=== PATIENT | female | born 1940 | race Caucasian/White ===

== ENCOUNTER → 2018-02-20 15:18 | Outpatient (CLI) | payer MEDICARE, OTHER, SELFPAY ==
[2018-02-20 16:25] LABS: Hemoglobin A1C% w Est Avg Glu 8.4 % (4.0-6.0)
[2018-02-20 17:23] LABS: Free T4, Direct Thyroxine 1.27 ng/dL (0.78-2.19)
== END ==
PROVIDERS: Family Provider Physician Assistant; PCP Physician Assistant; Visit Provider Physician Assistant
DX: R63.4 Abnormal weight loss (principal); E11.9 Type 2 diabetes mellitus without complications
CPT/HCPCS: 36415; 83036; 84439; 84443

== ENCOUNTER 2018-03-10 17:53 | Emergency (ER) | payer MEDICARE, OTHER, SELFPAY ==
[2018-03-10 17:55] VITALS: BP 170/82; PULSE 76; RESP 16; TEMP 36.2; O2SAT 100; BMI 21.6
[2018-03-10 18:54] VITALS: BP 182/70; PULSE 70; RESP 12; O2SAT 99
[2018-03-10 19:06] LABS: Add Manual Diff / Slide Review NO; Basophils Percent Auto 0.4 % (0-2); Eosinophils Percent Auto 0.6 % (2-4); Hematocrit 43.9 % (36-46); Hemoglobin 14.8 g/dL (12.0-16.0); Lymphocytes Percent Auto 26.3 % (25-40); Mean Corpuscular HGB Conc 33.6 % (30-36); Mean Corpuscular Hemoglobin 30.6 PG (26-34); Mean Corpuscular Volume 90.8 fL (80-100); Monocytes Percent Auto 6.6 % (3-14); Neutrophils Absolute Auto 5700 /uL (3000-5900); Neutrophils Percent Auto 66.1 % (50-75); Platelet Count 184 X10^3/uL (150-400); Red Blood Cell Count 4.84 X10^6/uL (4.0-5.2); Red Cell Distribution Width 14.2 % (11.6-14.8); White Blood Cell Count 8.6 X10^3/uL (4.5-11.0)
[2018-03-10] MEDS: ONDANSETRON 4 MG/2 ML INJ IV ×2 (19:07→21:55)
[2018-03-10 19:11] LABS: INR 1.1 (0.9-1.3); Prothrombin Time 11.4 SECONDS (10.1-12.7)
[2018-03-10 19:13] LABS: Alanine Aminotransferase 35 IU/L (9-52); Albumin 4.2 g/dL (3.5-5.0); Albumin Globulin Ratio 1.6 (1.0-2.8); Alkaline Phosphatase 105 U/L (38-126); Aspartate Aminotransferase 26 IU/L (14-36); Bilirubin Total 0.8 mg/dL (0.2-1.3); Blood Urea Nitrogen 12 mg/dL (7-17); Calcium 8.9 mg/dL (8.4-10.2); Carbon Dioxide 31 mmol/L (22-32); Chloride 97 mmol/L (98-107); Estimated Glomerular Filt Rate > 60.0 mL/min (>60); Globulin 2.7 g/dL (1.7-4.1); Glucose 199 mg/dL (80-110); HEMOLYSIS < 15 (0-50); Lipase 91 U/L (23-300); PTT Partial Thromboplastin Tim 30 SECONDS (26.4-36.2); Potassium 3.3 mmol/L (3.4-5.1); Sodium 138 mmol/L (137-145); Total Protein 6.9 g/dL (6.3-8.2)
--- NOTE | 2018-03-10 19:14 | ED_ITS ---
HPI - Abdominal Pain General Chief Complaint: Abdominal Pain Stated Complaint: vomiting Time Seen by Provider: 03/10/18 19:14 Source: patient Mode of arrival: ambulatory Limitations: no limitations History of Present Illness HPI narrative: The patient was started on Trulicity for diabetes. Her 1st dose was about 1.5 weeks ago. Her 2nd dose was 4 days ago. Since then she had multiple episodes of emesis daily. With this she has no fever, she has had chills. She has no diarrhea. She is actually constipated. She has not suffered any abdominal pain at this time. She has a remote history of diverticulitis, there is no c/o significant left lower quadrant pain. She has no ENT, chest or respiratory symptoms. She denies dysuria. Related Data Home Medications Medication Instructions Recorded Confirmed cyclobenzaprine 10 mg PO PRN #0 02/17/13 02/25/18 amlodipine [Norvasc] 2.5 mg PO QDAY #0 02/04/17 02/25/18 Previous Rx's Medication Instructions Recorded albuterol sulfate [Ventolin HFA] 0 INH Q4H #8 gm 06/26/16 hyoscyamine sulfate 0.125 mg SUBLINGUAL TID-QID #120 11/06/16 tab hyoscyamine sulfate [Hyosyne] 0.25 ml PO TID-QID #240 ml 11/06/16 cholecalciferol (vitamin D3) 50,000 unit PO [id number] #12 cap 04/04/17 hydrochlorothiazide 0.5 - 1 tab PO QDAY PRN #30 tab 04/04/17 Disabled Parking Permit ea #1 04/05/17 esomeprazole magnesium [Nexium] 40 mg PO HS #90 cap 11/19/17 hydroxyzine pamoate 25 mg capsule 25 mg PO Q6HP #60 cap 01/30/18 dicyclomine 20 mg tablet 20 mg PO Q6HP PRN #120 tab 02/07/18 glyburide 5 mg tablet 10 mg PO BID #120 tab 02/07/18 Glucose: Test Strips #100 each 02/25/18 atorvastatin 10 mg tablet 5 mg PO BID #90 tab 02/25/18 dulaglutide 0.75 mg/0.5 mL 0.75 mg SUBCUT QWEEK #2 ml 02/25/18 subcutaneous pen injector losartan 50 mg tablet 50 mg PO Q DAY #90 tab 02/25/18 nabumetone 500 mg tablet See Label Instructions PO QDAY 02/25/18 #270 tab tramadol 50 mg tablet 50 mg PO HSP PRN #60 tab 02/25/18 ondansetron [Zofran ODT] 4 mg PO Q4H PRN #10 tab 03/10/18 Allergies Allergy/AdvReac Type Severity Reaction Status Date / Time cloxacillin Allergy Intermediate HIVES Unverified 02/25/18 12:16 Penicillins Allergy Intermediate HIVES Unverified 02/25/18 12:16 zinc Allergy Intermediate HIVES Unverified 02/25/18 12:16 aspirin AdvReac Intermediate SEVERE Unverified 02/25/18 12:16 REFLUX acetaminophen AdvReac Mild STOMACH Unverified 02/25/18 12:16 UPSET cephalexin AdvReac Mild STOMACH Unverified 02/25/18 12:16 PAINS ciprofloxacin AdvReac Mild STOMACH Unverified 02/25/18 12:16 PAINS codeine AdvReac Mild GI UPSET Unverified 02/25/18 12:16 diphenhydramine AdvReac Mild STOMACH Unverified 02/25/18 12:16 UPSET metformin AdvReac Mild ABDOMINAL Unverified 02/25/18 12:16 PAIN metronidazole AdvReac Mild STOMACH Unverified 02/25/18 12:16 UPSET morphine AdvReac Mild GI UPSET Unverified 02/25/18 12:16 Review of Systems Constitutional Reports chills, Denies fever(s), Denies lethargy and Denies weakness Eyes Denies eye discharge ENT Ears, Nose, Mouth, and Throat: Denies change in voice, Denies disequilibrium and Denies sore throat Cardiovascular Denies chest pain, Denies irregular heart rhythm, Denies lightheadedness, Denies palpitations, Denies dyspnea, Denies dyspnea on exertion and Denies orthopnea Respiratory Denies cough, Denies dyspnea, Denies dyspnea on exertion and Denies wheezing Gastrointestinal Gastrointestinal: Denies abdominal pain, Denies diarrhea, Reports nausea, Reports vomiting and Denies hematemesis Genitourinary Denies dysuria, Denies flank pain and Denies urinary urgency Musculoskeletal Denies back pain, Denies muscle weakness, Denies numbness and Denies tingling Integumentary/Breasts Denies erythema and Denies rash Neurologic Denies numbness, Denies tingling, Denies disequilibrium and Denies weakness Endocrine Denies palpitations Allergic/Immunologic Denies wheezing [facility] Medical History Ankylosing spondylitis (Chronic Unknown) Diabetes (Chronic Unknown) Diverticulitis (Chronic Unknown) Fibromyalgia (Chronic Unknown) GERD (gastroesophageal reflux disease) (Chronic Unknown) Hyperlipemia (Chronic Unknown) Osteopenia (Chronic 03/2013) Osteoporosis (Chronic 09/2014) Hx of rheumatic fever (Resolved Unknown) Surgical History Hx of arthroscopy of left knee (Resolved 01/2015) History of tonsillectomy Status post breast reduction Status post cholecystectomy Status post hysterectomy Family History Grandmother Pernicious anemia Sister Diabetes mellitus Dementia Sister Diabetes mellitus CAD (coronary artery disease) Sister Diabetes mellitus CAD (coronary artery disease) Social History Smoking Status: Never smoker Exam Initial Vital Signs Initial Vital Signs: Vital Signs Temperature 97.2 F L 03/10/18 17:55 Pulse Rate 76 03/10/18 17:55 Respiratory Rate 16 03/10/18 17:55 Blood Pressure 170/82 H 03/10/18 17:55 Pulse Oximetry 100 03/10/18 17:55 Const General: cooperative and well developed Nutritional Appearance: well nourished Orientation: alert, awake, oriented x3 and not confused [facility] Head: normocephalic and atraumatic Nose: No nasal discharge Face and sinus: sinuses nontender, face symmetric, no sinus tenderness and No dry mucous membranes Mouth: oral mucosae normal and moist mucous membranes Teeth and gingiva: dentition normal Throat: posterior oropharynx normal Eyes Conjunctivae: conjunctivae normal Pupils: PERRL EOM: EOM intact bilaterally Neck Neck: No JVD Resp Effort & Inspection: normal respiratory effort, able to speak in complete sentences and no respiratory distress Auscultation: clear to auscultation bilaterally, no rales, no rhonchi and no wheezes Cardio Rate: regular rate Rhythm: regular rhythm Heart Sounds: S1 normal, S2 normal, no click, no gallops, no murmurs and no rubs Pulses: normal peripheral pulses GI Inspection: non-distended Palpation: soft, no hepatosplenomegaly, No guarding, No pulsatile mass and tender (in the LLQ. No rebound) Auscultation: normal bowel sounds Back/Spine/Pelvis Other: No CVAT Skin General: no rashes or lesions noted, No jaundice and No petechiae Neuro General: alert, oriented x3, gait normal and no focal motor deficits Speech: speech normal Extrem General: full ROM, no clubbing, cyanosis or edema, no pedal edema and no calf tenderness Course Hospital Course: The patient has improved with IV hydration, and the medications given. She was given a dose of potassium orally. The situation seems to be associated with an adverse medication reaction. I will discharge her on Zofran, she will need to follow up with her doctor to decide whether not to continue the medication. Orders Ordered: ED Orders 03/10/18 18:50 Complete Blood Count AUTO DIFF Stat Comprehensive Metabolic Panel Stat Lipase Stat Partial Thromboplastin Time Stat Prothrombin Time INR Stat 03/10/18 21:14 Urine Microscopic Stat Discontinued Medications Sodium Chloride (Normal Saline 0.9%) 500 mls @ 1,000 mls/hr IV BOLUS ONE Stop: 03/10/18 20:20 Last Infusion: 03/10/18 21:29 Dose: 0 mls/hr Admin: 03/10/18 20:08 Dose: 1,000 mls/hr Sodium Chloride (Normal Saline 0.9%) 500 mls @ 1,000 mls/hr IV BOLUS ONE Stop: 03/10/18 22:08 Last Infusion: 03/10/18 22:41 Dose: 0 mls/hr Admin: 03/10/18 21:55 Dose: 1,000 mls/hr Ondansetron HCl (Zofran) 4 mg IV NOW ONE Stop: 03/10/18 18:40 Last Admin: 03/10/18 19:07 Dose: 4 mg Ondansetron HCl (Zofran) 4 mg IV NOW ONE Stop: 03/10/18 21:40 Last Admin: 03/10/18 21:55 Dose: 4 mg Ondansetron HCl (Zofran Odt Prepack) 1 bottle [facility] SEEINSTR ONE Stop: 03/10/18 22:34 Last Admin: 03/10/18 22:41 Dose: 1 bottle Pantoprazole Sodium (Protonix) 40 mg IV NOW ONE Stop: 03/10/18 21:40 Last Admin: 03/10/18 21:55 Dose: 40 mg Potassium Chloride (Potassium Chloride) 20 meq PO NOW ONE Stop: 03/10/18 19:52 Last Admin: 03/10/18 20:08 Dose: 20 meq Vital Signs - 8 hr 03/10/18 20:30 03/10/18 21:30 03/10/18 22:47 Temperature 97.6 F Pulse Rate 72 73 84 Respiratory Rate 18 Blood Pressure 190/65 H Blood Pressure [Right Arm] 158/72 H 190/65 H Pulse Oximetry 100 99 100 MDM - Abdominal Pain Lab Data Attestation: I reviewed the patient's lab results. Result diagrams: 03/10/18 18:50 03/10/18 18:50 Lab Results 03/10/18 03/10/18 03/10/18 Range/Units 18:50 18:50 18:50 WBC 8.6 (4.5-11.0) X10^3/uL RBC 4.84 (4.0-5.2) X10^6/uL Hgb 14.8 (12.0-16.0) g/dL Hct 43.9 (36-46) % MCV 90.8 (80-100) fL MCH 30.6 (26-34) PG MCHC 33.6 (30-36) % RDW 14.2 (11.6-14.8) % Plt Count 184 (150-400) X10^3/uL Neut % (Auto) 66.1 (50-75) % Lymph % (Auto) 26.3 (25-40) % Humphreys % (Auto) 6.6 (3-14) % Eos % (Auto) 0.6 L (2-4) % Baso % (Auto) 0.4 (0-2) % Neut # (Auto) 5700 (8070-3708) /uL PT 11.4 (10.1-12.7) SECONDS INR 1.1 (0.9-1.3) APTT 30 (26.4-36.2) SECONDS Sodium 138 (137-145) mmol/L Potassium 3.3 L (3.4-5.1) mmol/L Chloride 97 L (98-107) mmol/L Carbon Dioxide 31 (22-32) mmol/L BUN 12 (7-17) mg/dL Creatinine 0.50 L (0.52-1.04) mg/dL Estimated GFR > 60.0 (>60) mL/min BUN/Creatinine Ratio 24.0 H (6-22) Glucose 199 H (80-110) mg/dL Calcium 8.9 (8.4-10.2) mg/dL Total Bilirubin 0.8 (0.2-1.3) mg/dL AST 26 (14-36) IU/L ALT 35 (9-52) IU/L Alkaline Phosphatase 105 (38-126) U/L Total Protein 6.9 (6.3-8.2) g/dL Albumin 4.2 (3.5-5.0) g/dL Globulin 2.7 (1.7-4.1) g/dL Albumin/Globulin Ratio 1.6 (1.0-2.8) Lipase 91 (23-300) U/L Urine RBC (0-5/HPF) Urine WBC (0-5/HPF) Ur Squamous Epith Cells Urine Bacteria (None) Urine Mucus (Negative) Ur Culture Indicated? Micro UA Comment 03/10/18 Range/Units 21:14 WBC (4.5-11.0) X10^3/uL RBC (4.0-5.2) X10^6/uL Hgb (12.0-16.0) g/dL Hct (36-46) % MCV (80-100) fL MCH (26-34) PG MCHC (30-36) % RDW (11.6-14.8) % Plt Count (150-400) X10^3/uL Neut % (Auto) (50-75) % Lymph % (Auto) (25-40) % Humphreys % (Auto) (3-14) % Eos % (Auto) (2-4) % Baso % (Auto) (0-2) % Neut # (Auto) (3532-7666) /uL PT (10.1-12.7) SECONDS INR (0.9-1.3) APTT (26.4-36.2) SECONDS Sodium (137-145) mmol/L Potassium (3.4-5.1) mmol/L Chloride (98-107) mmol/L Carbon Dioxide (22-32) mmol/L BUN (7-17) mg/dL Creatinine (0.52-1.04) mg/dL Estimated GFR (>60) mL/min BUN/Creatinine Ratio (6-22) Glucose (80-110) mg/dL Calcium (8.4-10.2) mg/dL Total Bilirubin (0.2-1.3) mg/dL AST (14-36) IU/L ALT (9-52) IU/L Alkaline Phosphatase (38-126) U/L Total Protein (6.3-8.2) g/dL Albumin (3.5-5.0) g/dL Globulin (1.7-4.1) g/dL Albumin/Globulin Ratio (1.0-2.8) Lipase (23-300) U/L Urine RBC 0-1/hpf (0-5/HPF) Urine WBC 0-1/hpf (0-5/HPF) Ur Squamous Epith Cells 0-1 /hpf Urine Bacteria None seen (None) Urine Mucus 1+ H (Negative) Ur Culture Indicated? Cult not indicated Micro UA Comment Not Reportable ECG Data Attestation: I personally reviewed and interpreted this ECG as follows: (Normal sinus rhythm rate 75 bpm. Indeterminate axis. Nonspecific ST T wave changes. No ST elevation. Normal intervals.) Discharge Plan Departure Patient Disposition: Home, Self-Care Clinical Impression: Vomiting, Adverse drug reaction Discharge Date/Time: 03/10/18 22:52 Interventions: ED Discharge Assessment Last Done: 03/10/18 22:47 Instructions: DI for Vomiting -- Adult Activity Restrictions/Additional Instructions: Avoid taking the Trulicity until you follow up with your doctor. Zofran every 4 hr as needed for nausea. Be sure you are drinking plenty of water, advance your diet as tolerated. Return here as needed. Prescriptions: New ondansetron [Zofran ODT] 4 mg tablet,disintegrating 4 mg PO Q4H PRN (Reason: nausea and vomiting) Qty: 10 RF: 0 No Action losartan [Cozaar] 50 mg tablet 50 mg PO Q DAY Qty: 90 RF: 3 tramadol 50 mg tablet 50 mg PO HSP PRN (Reason: pain) Qty: 60 RF: 3 atorvastatin [Lipitor] 10 mg tablet 5 mg PO BID Qty: 90 RF: 3 nabumetone 500 mg tablet See Label Instructions PO QDAY Qty: 270 RF: 3 dulaglutide [Trulicity] 0.75 mg/0.5 mL pen injector 0.75 mg SUBCUT QWEEK Qty: 2 RF: 1 Glucose: Test Strips .Route .MEDSUPPLY Qty: 100 RF: 3 cyclobenzaprine 10 MG tablet 10 mg PO PRN Qty: 0 RF: 0 albuterol sulfate [Ventolin HFA] 90 MCG/PUFF HFA aerosol inhaler INH Q4H Qty: 8 RF: 0 hyoscyamine sulfate 0.125 MG tablet,disintegrating 0.125 mg Sublingual TID-QID Qty: 120 RF: 1 hyoscyamine sulfate [Hyosyne] 0.125 MG/1 ML drops 0.25 ml PO TID-QID Qty: 240 RF: 1 amlodipine [Norvasc] 2.5 MG tablet 2.5 mg PO QDAY Qty: 0 RF: 0 hydrochlorothiazide 12.5 MG tablet 0.5 - 1 tab PO QDAY PRNQty: 30 RF: 3 cholecalciferol (vitamin D3) 50,000 UNIT capsule 50,000 unit PO [id number] Qty: 12 RF: 3 Disabled Parking Permit Qty: 1 RF: 0 esomeprazole magnesium [Nexium] 40 MG capsule,delayed release(DR/EC) 40 mg PO HS Qty: 90 RF: 0 hydroxyzine pamoate [Vistaril] 25 mg capsule 25 mg PO Q6HP Qty: 60 RF: 0 dicyclomine 20 mg tablet 20 mg PO Q6HP PRN (Reason: Irritable bowel syndrome) Qty: 120 RF: 0 glyburide 5 mg tablet 10 mg PO BID Qty: 120 RF: 0
[2018-03-10] MEDS: SODIUM CHLORIDE 0.9% 500 ML 1000 ML IV ×2 (20:08→21:55)
[2018-03-10] MEDS: POTASSIUM CHLORIDE 20 MEQ/15 ML UDC PO (20:08)
[2018-03-10 20:30] VITALS: BP 158/72; PULSE 72; O2SAT 100
[2018-03-10 21:19] LABS: Bacteria Urine None Seen
[2018-03-10 21:29] LABS: Culture Indicated Urine Cult Not Indicated; Mucus Urine 1+ (Negative); RBC Urine 0-1/HPF (0-5/HPF); Squamous Epithelial Cell Urine 0-1 /HPF; WBC Urine 0-1/HPF (0-5/HPF)
[2018-03-10 21:30] VITALS: BP 190/65; PULSE 73; O2SAT 99
[2018-03-10] MEDS: PANTOPRAZOLE 40 MG VIAL IV (21:55)
[2018-03-10] MEDS: ONDANSETRON 4 MG ODT PREPACK 1 BOTTLE MISC (22:41)
[2018-03-10 22:47] VITALS: BP 190/65; PULSE 84; RESP 18; TEMP 36.4; O2SAT 100
== END 2018-03-10 22:52 | disposition home or self-care (01) ==
PROVIDERS: Emergency Provider Emergency Medicine; Family Provider Physician Assistant; PCP Physician Assistant
DX: R11.10 Vomiting, unspecified (principal); T38.3X5A Adverse effect of insulin and oral hypoglycemic [antidiabetic] drugs, initial encounter
CPT/HCPCS: 36591; 80053; 81003; 81015; 83690; 85025; 85610; 85730; 93005; 96361; 96374; 96375; 96376; 99283; 99284; C9113; J2405

== ENCOUNTER → 2018-03-27 17:37 | Outpatient (CLI) | payer MEDICARE, OTHER, SELFPAY ==
--- NOTE | 2018-03-27 | DI.MRI.S_ITS ---
PROCEDURE: MR SHOULDER RT WO CON INDICATIONS: Right shoulder osteoarthritis TECHNIQUE: Noncontrast oblique coronal T2 fast spin echo with fat saturation, oblique sagittal T1 spin echo and T2 fast spin echo with fat saturation, axial T1 spin echo and T2 fast spin echo with fat saturation through the shoulder. COMPARISON: None. FINDINGS: Image quality: Excellent. Rotator cuff: Small region of fluid signal intensity within the upper subscapularis tendon at the humeral insertion site extending to the muscular tendinous junction is present. Linear horizontally oriented high T2 signal intensity within anterior, middle, and posterior supraspinatus footprint is present, which nearly extends to the bursal surface. Low T2 signal intensity foci within the supraspinatus tendon bursal surface at the humeral insertion site, as well as the mid infraspinatus tendon at the humeral insertion site is present, indicating calcific tendinitis. Sagittal images demonstrate no muscle atrophy. Bones and bursae: No bone marrow contusions or fractures. There is mild acromioclavicular joint degeneration. The acromion demonstrates conventional anatomy, without an os acromiale. No pathologic subacromial-subdeltoid or subcoracoid bursal fluid is present. Capsule and soft tissues: Linear and amorphous high T2 signal intensity traverses the anteroinferior, postero-inferior, mid posterior, and posterior inferior glenoid labrum, indicating glenoid labral tearing. The long head of the biceps tendon demonstrates normal location and morphology. The rotator interval appears normal, without fibrosis. The coracohumeral ligament is normal in thickness. IMPRESSION: 1. Small high-grade partial-thickness articular surface tearing of the anterior, mid, and posterior supraspinatus tendon footprint. 2. Small partial-thickness tear of the subscapularis tendon. 3. Acromioclavicular joint osteoarthritis. 4. Glenoid labral tearing. Dictated by: Angely Mitchell M.D. on 03/28/2018 at 9:16 Approved by: Angely Mitchell M.D. on 03/28/2018 at 9:31
== END ==
PROVIDERS: Family Provider Physician Assistant; PCP Physician Assistant; Visit Provider Orthopaedic Surgery
DX: M75.101 Unspecified rotator cuff tear or rupture of right shoulder, not specified as traumatic (principal); M19.011 Primary osteoarthritis, right shoulder
CPT/HCPCS: 73221

== ENCOUNTER → 2018-04-07 17:04 | Outpatient (CLI) | payer MEDICARE, OTHER, SELFPAY ==
--- NOTE | 2018-04-07 17:06 | DI.MRI.S_ITS ---
PROCEDURE: MR CERVICAL SPINE WO CON INDICATIONS: Neck pain radiating into right shoulder TECHNIQUE: Noncontrast sagittal T1 spin echo and T2 fast spin echo, sagittal STIR, foraminal oblique sagittal T2 fast spin echo, and axial gradient echo or T2 fast spin echo through the cervical spine. COMPARISON: [facility], CT, C-SPINE WITHOUT CONTRAST, 04/07/2010, 1:00. FINDINGS: Image quality: Excellent. Alignment and Curvature: There is normal bony alignment. Bone Marrow: Marrow demonstrates normal overall signal. There is surgical fusion at C5-C6-C7. Spinal Cord: Visualized spinal cord has normal size and signal. No cerebellar tonsillar herniation. Paraspinous Soft Tissues: No paravertebral masses. Prevertebral soft tissues are normal in thickness. C2-C3: Mild loss of disc height and disc desiccation. There is diffuse posterior disc bulge. The central canal is patent. No foraminal stenosis. C3-C4: Mild loss of disc height and disc desiccation. There is diffuse posterior disc bulge and uncovertebral hypertrophy. Mild right facet arthropathy. The central canal is moderately narrowed. [id number] bilateral foraminal stenosis. C4-C5: Mild loss of disc height and disc desiccation. There is diffuse posterior disc bulge and uncovertebral hypertrophy. Moderate bilateral facet arthropathy. The central canal is moderately narrowed. [id number] bilateral foraminal stenosis. C5-C6: Surgically fused. Prominent posterior osteophyte. Mild bilateral facet of C3 the central canal is moderately narrowed. Severe left and moderate right foraminal stenosis. C6-C7: Surgically fused. Prominent posterior osteophyte. Mild bilateral facet of C3 the central canal is moderately narrowed. Severe left and moderate right foraminal stenosis. C7-T1: Normal appearance. IMPRESSION: 1. Multilevel degenerative and postsurgical changes as described. 2. Moderate central canal stenosis at C5-C6 and C6-C7. 3. Multilevel foraminal stenosis as described, severe at C5-C6 and C6-C7 on the left, moderate to severe at C3-C4 and C4-C5 bilaterally, moderate at C5-C6 and C6-C7 on the right. Dictated by: Keegan Seals M.D. on 04/08/2018 at 11:21 Transcribed by: PROSPER on 04/08/2018 at 11:27 Approved by: Keegan Seals M.D. on 04/08/2018 at 17:43
== END ==
PROVIDERS: Family Provider Physician Assistant; PCP Physician Assistant; Visit Provider Physician Assistant
DX: M50.11 Cervical disc disorder with radiculopathy, high cervical region (principal); M48.02 Spinal stenosis, cervical region; Z98.1 Arthrodesis status
CPT/HCPCS: 72141

== ENCOUNTER → 2018-04-14 13:34 | Outpatient (CLI) | payer MEDICARE, OTHER, SELFPAY | PROVIDERS: Family Provider Physician Assistant; PCP Physician Assistant; Visit Provider Physician Assistant | DX: M81.0 Age-related osteoporosis without current pathological fracture (principal); Z78.0 Asymptomatic menopausal state; E11.9 Type 2 diabetes mellitus without complications; M45.9 Ankylosing spondylitis of unspecified sites in spine; M06.9 Rheumatoid arthritis, unspecified; Z82.62 Family history of osteoporosis | CPT/HCPCS: 77080 ==

== ENCOUNTER 2018-07-01 08:44 | Outpatient (CLI) | payer MEDICARE, OTHER, SELFPAY ==
[2018-07-01] VITALS (9 sets, daily range): BP systolic 99–136; BP diastolic 53–69; PULSE 67–79; RESP 16–18; TEMP 36.6; O2SAT 98–100
--- NOTE | 2018-07-01 08:48 | DI.RAD.S_ITS ---
PROCEDURE: PAIN C/T FACET INJ/BLK 1ST L INDICATIONS: SPONDYLOSIS FINDINGS: Fluoroscopic spot filming was performed to verify placement of spinal needles at the C7-T1 and T1-T2 right-sided level(s), as labeled on the films. Appropriate location(s) of the needle tip(s) was confirmed by injection of iodinated contrast. IMPRESSION: Successful needle tip localization adjacent to the right C7-T1 and T1-T2 facet joints for epidural steroid injection. Dictated by: Lennox Verma M.D. on 07/01/2018 at 16:33 Approved by: Lennox Verma M.D. on 07/01/2018 at 16:34
--- NOTE | 2018-07-01 09:30 | PC.NURSE ---
pt reports, posterior neck pain, with right arm radiating pain, unable to sleep last night due to pain, denies fever,vomiting.
[2018-07-01] MEDS: MIDAZOLAM 5 MG/5 ML VIAL IV (09:44)
[2018-07-01] MEDS: IOPAMIDOL 15 ML VIAL 3 ML INJ (09:52)
[2018-07-01] MEDS: BUPIVACAINE 0.25% (PF) VIAL 2 ML INJ (09:53)
[2018-07-01] MEDS: DEXAMETHASONE 10 MG/ML VIAL 30 MG INJ (09:53)
--- NOTE | 2018-07-01 09:55 | PC.NURSE ---
transporting pt to post op area in stable condition
--- NOTE | 2018-07-01 09:56 | PM.PROC.1 ---
Procedures Date/Time Date of procedure: 07/01/18 Time of procedure: 09:57 General Procedure description: PREOP DIAGNOSIS 1. FACET ARTHROPATHY 2. AXIAL NECK PAIN POST OP DIAGNOSIS 1. FACET ARTHROPATHY 2. AXIAL NECK PAIN PROCEDURES 1. FLUOROSCOPICALLY GUIDED, CONTRAST-CONTROLLED RIGHT C7/T1, T1/2 FACET JOINT INJECTIONS WITH CONSCIOUS SEDATION. PHYSICIAN: Melchor Anglin, DO INDICATIONS Fernanda is referred by BERNIE Daniel for treatment of Axial Neck Pain DESCRIPTION OF PROCEDURE Fluoroscopically guided, contrast-controlled Right C7/T1, T1/2 facet joint injections with conscious sedation. Following denial of allergy and review of potential side effects and complications, including, but not necessarily limited to, infection, allergic reaction, local tissue breakdown, stroke, temporary or permanent nerve injury and paralysis, the patient indicated that the patient understood and agreed to proceed. An informed consent document was signed by the patient, witnessed by a nurse, and placed in the patient's chart. Additionally, other treatment options including medications, modalities, and physical therapy were reviewed with the patient. After review of previous anaesthesic history and IV conscious sedation the patient was deemed safe to proceed with todays procedure with IV conscious sedation as ASA class II designation. Safety time-out was performed to confirm patient ID, procedure to be performed and site of procedure. IV sedation was accomplished with a combination of 3mg was administered by the RN after DO order, titrated to patient comfort during the course of the procedure while the patient remained responsive to all verbal commands In the prone position, following sterile prep and drape of the cervical spine region, the posterior aspect of the right C7/T1, T1/2 facet joints were identified fluoroscopically. The skin was anesthetized via a 25-gauge 1.5-inch needle with 1% lidocaine solution into the corresponding facet joints. At this point, a 25-gauge 2.5-inch spinal needle was atraumatically introduced and advanced under fluoroscopic guidance into the corresponding facet joints. Following negative aspiration, injections of approximately 0.2-cc of Isovue 200 confirmed interarticular placement without vascular uptake. At this point, a total of 1 cc including 0.5 cc or 5 mg of dexamethasone combined with 0.5 cc of 1% lidocaine solution was injected without complication into each of the corresponding facet joints. The procedure tolerated the procedure well without signs or symptoms of complications prior to transfer to the recovery area continued monitoring without incident. The patient was then transferred to the recovery area where they were observed for an appropriate period of time after the injection. The patient reported a VAS score of 7 prior to the procedure and a post-procedure VAS of 0. Total Fluoroscopy Time: 20.5 seconds Total Conscious Sedation Time: 24 min POST OP INSTRUCTIONS They were provided a Pain Log to continue to record their response to the target-specific procedure prior to their follow-up visit with their referring physician. Additionally, specific post-injection care instructions and a contact number to our office were provided if concerns arise regarding possible complications associated with the procedure are suspected. Melchor Anglin, Complications: none
--- NOTE | 2018-07-01 09:59 | P.PCN_ITS ---
Procedures Date/Time Date of procedure: 07/01/18 Time of procedure: 09:57 General Procedure description: PREOP DIAGNOSIS 1. FACET ARTHROPATHY 2. AXIAL NECK PAIN POST OP DIAGNOSIS 1. FACET ARTHROPATHY 2. AXIAL NECK PAIN PROCEDURES 1. FLUOROSCOPICALLY GUIDED, CONTRAST-CONTROLLED RIGHT C7/T1, T1/2 FACET JOINT INJECTIONS WITH CONSCIOUS SEDATION. PHYSICIAN: Melchor Anglin, DO INDICATIONS Fernanda is referred by BERNIE Daniel for treatment of Axial Neck Pain DESCRIPTION OF PROCEDURE Fluoroscopically guided, contrast-controlled Right C7/T1, T1/2 facet joint injections with conscious sedation. Following denial of allergy and review of potential side effects and complications, including, but not necessarily limited to, infection, allergic reaction, local tissue breakdown, stroke, temporary or permanent nerve injury and paralysis, the patient indicated that the patient understood and agreed to proceed. An informed consent document was signed by the patient, witnessed by a nurse, and placed in the patient's chart. Additionally, other treatment options including medications, modalities, and physical therapy were reviewed with the patient. After review of previous anaesthesic history and IV conscious sedation the patient was deemed safe to proceed with todays procedure with IV conscious sedation as ASA class II designation. Safety time-out was performed to confirm patient ID, procedure to be performed and site of procedure. IV sedation was accomplished with a combination of 3mg was administered by the RN after DO order , titrated to patient comfort during the course of the procedure while the patient remained responsive to all verbal commands In the prone position, following sterile prep and drape of the cervical spine region, the posterior aspect of the right C7/T1, T1/2 facet joints were identified fluoroscopically. The skin was anesthetized via a 25-gauge 1.5-inch needle with 1% lidocaine solution into the corresponding facet joints. At this point, a 25-gauge 2.5-inch spinal needle was atraumatically introduced and advanced under fluoroscopic guidance into the corresponding facet joints. Following negative aspiration, injections of approximately 0.2-cc of Isovue 200 confirmed interarticular placement without vascular uptake. At this point, a total of 1 cc including 0.5 cc or 5 mg of dexamethasone combined with 0.5 cc of 1% lidocaine solution was injected without complication into each of the corresponding facet joints. The procedure tolerated the procedure well without signs or symptoms of complications prior to transfer to the recovery area continued monitoring without incident. The patient was then transferred to the recovery area where they were observed for an appropriate period of time after the injection. The patient reported a VAS score of 7 prior to the procedure and a post- procedure VAS of 0. Total Fluoroscopy Time: 20.5 seconds Total Conscious Sedation Time: 24 min POST OP INSTRUCTIONS They were provided a Pain Log to continue to record their response to the target -specific procedure prior to their follow-up visit with their referring physician. Additionally, specific post-injection care instructions and a contact number to our office were provided if concerns arise regarding possible complications associated with the procedure are suspected. Melchor Anglin, Complications: none
--- NOTE | 2018-07-01 10:26 | PC.NURSE ---
recieved from Yelitza Thompson via wheelchair, sleepy but easily arousable with verbal stimuli, able to transfer self from w/c to recliner, pain free at this time.
--- NOTE | 2018-07-01 10:28 | PC.NURSE ---
increasing alertness, tolerating to drink water and able to snack on cookies
== END 2018-07-01 11:13 ==
LOC: RAD 08:47
PROVIDERS: PCP Physician Assistant; Visit Provider Physical Medicine & Rehabilitation
DX: M47.812 Spondylosis without myelopathy or radiculopathy, cervical region (principal); M54.2 Cervicalgia
CPT/HCPCS: 64490; 99152; J1100; J2250

== ENCOUNTER → 2018-10-09 14:45 | Outpatient (CLI) | payer MEDICARE, OTHER, SELFPAY ==
[2018-10-09 15:29] LABS: HEMOLYSIS < 15 (0-50); Iron 104 ug/dL (37-170)
[2018-10-09 15:32] LABS: Alanine Aminotransferase 43 IU/L (9-52); Albumin 4.2 g/dL (3.5-5.0); Albumin Globulin Ratio 1.8 (1.0-2.8); Alkaline Phosphatase 77 U/L (38-126); Aspartate Aminotransferase 28 IU/L (14-36); BUN Creatinine Ratio 18.3 (6-22); Bilirubin Total 0.6 mg/dL (0.2-1.3); Blood Urea Nitrogen 11 mg/dL (7-17); Calcium 9.2 mg/dL (8.4-10.2); Carbon Dioxide 31 mmol/L (22-32); Chloride 100 mmol/L (98-107); Cholesterol 170 mg/dL (140-199); Estimated Glomerular Filt Rate > 60.0 mL/min (>60); Globulin 2.4 g/dL (1.7-4.1); Glucose 131 mg/dL (80-110); HDL Cholesterol 77 mg/dL (40-60); HEMOLYSIS < 15 (0-50); LDL Cholesterol Calculated 72 mg/dL (<100); Potassium 3.6 mmol/L (3.4-5.1); Sodium 138 mmol/L (137-145); Total Protein 6.6 g/dL (6.3-8.2); Triglycerides 106 mg/dL (35-150)
[2018-10-09 15:33] LABS: Hemoglobin A1C% w Est Avg Glu 7.1 % (4.0-6.0)
[2018-10-09 15:39] LABS: Percent Iron Saturation 34 % (15-50); Total Iron Binding Capacity 304 ug/dL (265-497); Transferrin 246 mg/dL (206-381)
[2018-10-09 16:05] LABS: Ferritin 85.9 ng/mL (11.1-264)
[2018-10-09 16:06] LABS: Vitamin D 25 Hydroxy (D3) 84.7 ng/mL (30.0-100.0)
[2018-10-09 16:07] LABS: Microalbumi Creatinin Ratio Ur 12.7 ug/mg CR (<30); Microalbumin Urine Random < 0.6 mg/dL (0-1.6)
[2018-10-09 16:19] LABS: Vitamin B12 807 pg/mL (239-931)
== END ==
PROVIDERS: PCP Physician Assistant; Visit Provider Physician Assistant
DX: E11.9 Type 2 diabetes mellitus without complications (principal); I10 Essential (primary) hypertension; M81.0 Age-related osteoporosis without current pathological fracture; R53.83 Other fatigue; E11.65 Type 2 diabetes mellitus with hyperglycemia
CPT/HCPCS: 36415; 80053; 80061; 82043; 82306; 82570; 82607; 82728; 83036; 83540; 83550

== ENCOUNTER → 2019-05-06 14:27 | Outpatient (CLI) | payer MEDICARE, OTHER, SELFPAY ==
[2019-05-06 14:54] LABS: Add Manual Diff / Slide Review NO; Basophils Absolute Auto 0 /uL (0-100); Basophils Percent Auto 0.9 % (0-2); Eosinophils Absolute Auto 100 /uL (0-450); Eosinophils Percent Auto 1.1 % (2-4); Hematocrit 42.3 % (36-46); Hemoglobin 14.3 g/dL (12.0-16.0); Lymphocytes Absolute Auto 2400 /uL (1100-4500); Lymphocytes Percent Auto 48.9 % (25-40); Mean Corpuscular HGB Conc 33.8 % (30-36); Mean Corpuscular Hemoglobin 30.8 PG (26-34); Mean Corpuscular Volume 91.2 fL (80-100); Monocytes Absolute Auto 300 /uL (0-900); Monocytes Percent Auto 6.9 % (3-14); Neutrophils Absolute Auto 2100 /uL (1500-7000); Neutrophils Percent Auto 42.2 % (50-75); Platelet Count 182 X10^3/uL (150-400); Red Blood Cell Count 4.64 X10^6/uL (4.0-5.2); Red Cell Distribution Width 13.6 % (11.6-14.8)
[2019-05-06 15:06] LABS: Hemoglobin A1C% w Est Avg Glu 6.2 % (4.0-6.0)
[2019-05-06 15:56] LABS: Alanine Aminotransferase 24 IU/L (9-52); Albumin 4.2 g/dL (3.5-5.0); Albumin Globulin Ratio 1.8 (1.0-2.8); Alkaline Phosphatase 41 U/L (38-126); Aspartate Aminotransferase 25 IU/L (14-36); Bilirubin Total 0.6 mg/dL (0.2-1.3); Blood Urea Nitrogen 18 mg/dL (7-17); Calcium 9.2 mg/dL (8.4-10.2); Carbon Dioxide 30 mmol/L (22-32); Chloride 99 mmol/L (98-107); Cholesterol 162 mg/dL (140-199); Estimated Glomerular Filt Rate > 60.0 mL/min (>60); Globulin 2.4 g/dL (1.7-4.1); Glucose 141 mg/dL (80-110); HDL Cholesterol 74 mg/dL (40-60); HEMOLYSIS 18 (0-50); LDL Cholesterol Calculated 67 mg/dL (<100); Potassium 4.4 mmol/L (3.4-5.1); Sodium 139 mmol/L (137-145); Total Protein 6.6 g/dL (6.3-8.2); Triglycerides 107 mg/dL (35-150)
[2019-05-06 17:09] LABS: Creatinine Urine Random 107.2 mg/dL
[2019-05-06 17:12] LABS: Microalbumi Creatinin Ratio Ur 25.1 ug/mg CR (<30); Microalbumin Urine Random 2.7 mg/dL (0-1.6)
[2019-05-06 18:34] LABS: Vitamin B12 787 pg/mL (239-931)
== END ==
PROVIDERS: PCP Physician Assistant; Visit Provider Physician Assistant
DX: R63.4 Abnormal weight loss (principal); E11.65 Type 2 diabetes mellitus with hyperglycemia; E78.5 Hyperlipidemia, unspecified; M45.9 Ankylosing spondylitis of unspecified sites in spine
CPT/HCPCS: 36415; 80053; 80061; 82043; 82306; 82570; 82607; 83036; 84443; 85025

== ENCOUNTER 2019-06-02 06:36 | Day surgery (SDC) | payer MEDICARE, OTHER, SELFPAY ==
[2019-06-02] MEDS: PROPARACAINE 0.5% OPHTH SOL 2 DROPS EYE-OP (07:17)
[2019-06-02 07:23] VITALS: BP 145/73; PULSE 85; RESP 20; TEMP 36.3; O2SAT 100; BMI 16.2
[2019-06-02] MEDS: CATARACT EYE COMPOUND (10 DROPS/SYRINGE) 3 DROPS EYE-OP (07:25)
--- NOTE | 2019-06-02 08:13 | PM.PREOP ---
Pre-operative Note Interval Note History & Physical reviewed/Exam performed by Physician: No Changes to H&P: No
--- NOTE | 2019-06-02 08:13 | PM.OP.1 ---
Operative Date/Time/Diagnoses Pre-op diagnosis: Nuclear Cataract Left eye Post-op diagnosis: same Procedure & Clinicians Surgeon: Stu Eduardo Anesthesia Type: MAC +/- and Sedation Operative Notes Procedure in detail: Patient brought to the operating suite. Tetracaine drops placed in the left eye. Marking instrument used to criss the vertical and horizontal meridians. Patient was prepped and draped in sterile manner. Wire lid speculum was placed in the eye. Marking instrument used to criss the 140 degree meridian. Betadine drops were placed on the eye. This was irrigated. Lidocaine jelly was placed on the eye. A paracentesis port was created with a side-port blade. 0.1 mL 1% preservative free lidocaine was injected into the anterior chamber. The anterior chamber was deepened with viscoelastic. 2.6 mm keratome was used to create a temporal clear corneal incision. Cystotome and Utrata forceps were used to create continuous tear capsulorrhexis. Balanced salt solution was used to hydro dissect the nucleus. The Miloop was used to make the first crack of the nucleous. The phacoemulsification handpiece was inserted and the nucleus was removed using the stop and chop technique. The irrigation aspiration handpiece was inserted and the remaining cortex was removed. Anterior chamber was deepened with viscoelastic. An Mckeon KYR552 intraocular lens with a power of 24.0 was injected into the capsular bag. Irrigation aspiration handpiece was inserted and the remaining viscoelastic was removed. The lens was rotated to the 140 degree meridian. Incision was hydrated with balanced salt solution and found to be leak free with pressure with Weck-Bindu sponges. 0.1 mL Vigamox injected anterior chamber. 0.3 mL Kenalog 10 mg was injected subconjunctivally. Lid speculum was removed. The patient left the operating room in excellent condition. Complications: none Post-operative Condition: stable Disposition: same day surgery
[2019-06-02] MEDS: PHENYLEPHRINE/LIDOCAINE VIAL (OR) 0.2 ML EYE-OP (08:39)
[2019-06-02] MEDS: LIDOCAINE JELLY 2% 5 ML 1 APPLIC TOP (08:39)
[2019-06-02] MEDS: CHONDROIDTIN/SOD HYALURONATE 1.05 ML SYRINGE INTRAOCULA (08:39)
[2019-06-02] MEDS: MOXIFLOXACIN INJ 5 MG/ML VIAL EYE-OP (08:39)
[2019-06-02] MEDS: TETRACAINE 0.5% OPHTH DROPS 4 ML 2 DROPS EYE-OP (08:40)
[2019-06-02] MEDS: TRIAMCINOLONE 50 MG/5 ML VIAL INJ (08:40)
[2019-06-02] MEDS: BALANCED SALT IRRIG SOLN NO.2 500 ML, EPINEPHrine 1 MG IRR (08:40)
[2019-06-02 08:53] VITALS: BP 112/59; PULSE 83; RESP 16; TEMP 36.6; O2SAT 99
== END 2019-06-02 09:25 | disposition home or self-care (01) ==
LOC: OR 06:39
PROVIDERS: PCP Physician Assistant; Visit Provider Ophthalmology
PROC: (CPT 66984; principal; 2019-06-02 08:15)
DX: H25.12 Age-related nuclear cataract, left eye (principal); E11.9 Type 2 diabetes mellitus without complications
CPT/HCPCS: 66984; J0171; J2250; J3301; V2787

== ENCOUNTER 2019-06-16 07:30 | Day surgery (SDC) | payer MEDICARE, OTHER, SELFPAY ==
[2019-06-16] MEDS: PROPARACAINE 0.5% OPHTH SOL 2 DROPS EYE-OP (08:03)
[2019-06-16] MEDS: CATARACT EYE COMPOUND (10 DROPS/SYRINGE) 3 DROPS EYE-OP (08:08)
[2019-06-16 08:11] VITALS: BP 133/69; PULSE 86; RESP 15; TEMP 36.5; O2SAT 98; BMI 16.3
--- NOTE | 2019-06-16 08:20 | SUR.PREOP ---
iv placed per pt request.
--- NOTE | 2019-06-16 08:30 | PM.PREOP ---
Pre-operative Note Interval Note History & Physical reviewed/Exam performed by Physician: No Changes to H&P: No
--- NOTE | 2019-06-16 08:30 | PM.OP.1 ---
Operative Date/Time/Diagnoses Pre-op diagnosis: Nuclear cataract right eye Procedure & Clinicians Procedure: Cataract Surgery Same procedure as scheduled: Yes Surgeon: Stu Eduardo Anesthesia Type: MAC +/- and Sedation Operative Notes Procedure in detail: Patient brought to the operating suite. Tetracaine drops placed in the right eye. Patient was prepped and draped in sterile manner. Wire lid speculum was placed in the eye. Betadine drops were placed on the eye. This was irrigated. Lidocaine jelly was placed on the eye. A paracentesis port was created with a side-port blade. 0.1 mL 1% preservative free lidocaine was injected into the anterior chamber. The anterior chamber was deepened with viscoelastic. 2.6 mm keratome was used to create a temporal clear corneal incision. Cystotome and Utrata forceps were used to create continuous tear capsulorrhexis. Balanced salt solution was used to hydro dissect the nucleus. The nucleous was extremely dense. The Miloop was used to crack the nucleous. The phacoemulsification handpiece was inserted and the nucleus was removed using the stop and chop technique. The irrigation aspiration handpiece was inserted and the remaining cortex was removed. Anterior chamber was deepened with viscoelastic. An Mckeon ZCB00 intraocular lens with a power of 23.0 was injected into the capsular bag. Irrigation aspiration handpiece was inserted and the remaining viscoelastic was removed. Incision was hydrated with balanced salt solution and found to be leak free with pressure with Weck-Bindu sponges. 0.1 mL Vigamox injected anterior chamber. 0.3 mL Kenalog 10 mg was injected subconjunctivally. Lid speculum was removed. The patient left the operating room in excellent condition. Complications: none Post-operative Condition: stable Disposition: same day surgery
--- NOTE | 2019-06-16 08:49 | SUR.OPER ---
Supine on eye stretcher, head on extension cradle secured with tape. Arms tucked at sides with blanket. Pillow under knees.
[2019-06-16] MEDS: TRIAMCINOLONE 50 MG/5 ML VIAL INJ (08:51)
[2019-06-16] MEDS: MOXIFLOXACIN INJ 5 MG/ML VIAL EYE-OP (08:51)
[2019-06-16] MEDS: PHENYLEPHRINE/LIDOCAINE VIAL (OR) 0.2 ML EYE-OP (08:51)
[2019-06-16] MEDS: TETRACAINE 0.5% OPHTH DROPS 4 ML 2 DROPS EYE-OP (08:52)
[2019-06-16] MEDS: BALANCED SALT IRRIG SOLN NO.2 500 ML, EPINEPHrine 1 MG IRR (08:52)
[2019-06-16] MEDS: CHONDROIDTIN/SOD HYALURONATE 1.05 ML SYRINGE INTRAOCULA (08:52)
[2019-06-16] MEDS: LIDOCAINE JELLY 2% 5 ML 1 APPLIC TOP (08:52)
[2019-06-16 09:30] VITALS: BP 128/75; PULSE 68; RESP 16; TEMP 37.2; O2SAT 99
== END 2019-06-16 09:33 | disposition home or self-care (01) ==
PROVIDERS: PCP Physician Assistant; Visit Provider Ophthalmology
PROC: (CPT 66984; principal; 2019-06-16 09:15)
DX: H25.11 Age-related nuclear cataract, right eye (principal); E11.9 Type 2 diabetes mellitus without complications
CPT/HCPCS: 66984; J0171; J2250; J3301

== ENCOUNTER → 2019-07-06 12:11 | Outpatient (CLI) | payer MEDICARE, OTHER, SELFPAY ==
--- NOTE | 2019-07-06 12:12 | DI.US.S_ITS ---
PROCEDURE: US ABDOMEN COMPLETE INDICATIONS: ABNORMAL WEIGHT LOSS TECHNIQUE: Real-time scanning was performed of the abdominal and retroperitoneal organs, with image documentation. COMPARISON: [facility], US, ABDOMEN COMPLETE, 11/02/2009, 10:03. [facility], CT, ABDOMEN/PELVIS WITH CONTRAST, 02/25/2016, 19:23. FINDINGS: Liver: Liver is diffusely increased in echogenicity. No focal hepatic abnormalities identified. Normal hepatic size. Gallbladder: Surgically absent. Biliary ducts: Intrahepatic bile ducts are non-dilated. Extrahepatic bile duct caliber measures 2.1 mm. Normal is 6-7 mm or less in diameter, or 10 mm or less post-cholecystectomy. Pancreas: Visualized portions of the pancreas are sonographically normal. Spleen: Spleen is normal in size and homogeneous in echotexture. Kidneys: Kidneys are normal in size and echotexture. Right kidney measures 10.2 cm long; left kidney measures 9.7 cm long. No hydronephrosis or nephrolithiasis. No solid masses. Aorta: Visualized aorta is normal in caliber at less than 3 cm. Iliacs: Proximal common iliac arteries are normal in caliber at less than 2.5 cm. IVC: Intrahepatic inferior vena cava is patent. Miscellaneous: No free abdominal fluid. IMPRESSION: 1. Increased hepatic echogenicity noted possibly related to hepatic steatosis but other sources of hepatocellular disease cannot be excluded. Recommend clinical correlation. 2. No source for unintentional weight loss identified. Dictated by: Be HANEY Interpreted: Edwin Holcomb MD on 07/06/2019 at 13:43 Approved by: Edwin Holcomb M.D. on 07/06/2019 at 17:47
== END ==
PROVIDERS: PCP Physician Assistant; Visit Provider Physician Assistant
DX: R63.4 Abnormal weight loss (principal); E11.9 Type 2 diabetes mellitus without complications; Z90.49 Acquired absence of other specified parts of digestive tract
CPT/HCPCS: 76700

== ENCOUNTER 2019-09-14 15:20 | Emergency (ER) | payer MEDICARE, OTHER, SELFPAY ==
[2019-09-14 15:21] VITALS: BP 161/74; PULSE 73; RESP 18; TEMP 37.1; O2SAT 100
--- NOTE | 2019-09-14 18:06 | ED_ITS ---
HPI - Skin/Abscess/Foreign Bdy <Clara ElkinsJENNIFER - Last Filed: 09/14/19 21:15> General Chief complaint: Skin/Abscess/Foreign Body Stated complaint: WOUND LEFT SHOULDER Time Seen by Provider: 09/14/19 17:36 Source: patient Mode of arrival: Ambulatory Limitations: no limitations History of Present Illness HPI narrative: 79-year-old female presents to the emergency department for a lesion on the back of her left shoulder for the past 1.5 years. She states last year it swelled up and she drained it. However it has been increasingly irritating over the past few days and she picked at it. She has been putting Neosporin and a bandage on the area. Patient states she tried to have the lesion removed by a ENT but cannot get in to see them until October 07. She is here to have the lesion removed today. Patient denies fevers, chills, nausea, vomiting, diarrhea, chest pain, shortness of breath abdominal pain, or other concerns. Related Data Home Medications Medication Instructions Recorded Confirmed cyclobenzaprine 10 mg PO PRN #0 02/17/13 08/19/19 hyoscyamine sulfate 0.125 mg/mL 0.25 ml PO TID-QID ml 03/17/18 08/19/19 oral drops Atorvastatin See Rx Instructions .ROUTE .COMPLEX 05/14/18 08/19/19 nabumetone 500 mg tablet 500 mg PO TID tab 08/19/19 08/19/19 Previous Rx's Medication Instructions Recorded Disabled Parking Permit ea #1 04/05/17 Glucose: Test Strips #100 each 02/25/18 Freestyle Jeffery #1 ea 05/14/18 lidocaine 5 % topical patch 1 patch TOP DAILY PRN #15 each 09/15/18 ergocalciferol (vitamin D2) 50,000 50,000 unit PO QWEEK #90 cap 12/24/18 unit capsule dicyclomine 20 mg tablet 20 mg PO Q6HP PRN #120 tab 01/07/19 albuterol sulfate 90 mcg/actuation 2 inhalation INHALATION Q4-6H PRN 05/12/19 aerosol inhaler #18 gram megestrol 400 mg/10 mL (10 mL) 400 mg PO DAILY #400 ml 07/01/19 oral suspension BD Ultra Fine 31g 5MM #100 each 09/10/19 mupirocin 1 applictn TOP TID #22 gram 09/14/19 Allergies Allergy/AdvReac Type Severity Reaction Status Date / Time cloxacillin Allergy Intermediate HIVES Verified 09/14/19 15:25 Penicillins Allergy Intermediate HIVES Verified 09/14/19 15:25 zinc Allergy Intermediate HIVES Verified 09/14/19 15:25 aspirin AdvReac Intermediate SEVERE Verified 09/14/19 15:25 REFLUX acetaminophen AdvReac Mild STOMACH Verified 09/14/19 15:25 UPSET cephalexin AdvReac Mild STOMACH Verified 09/14/19 15:25 PAINS ciprofloxacin AdvReac Mild STOMACH Verified 09/14/19 15:25 PAINS codeine AdvReac Mild GI UPSET Verified 09/14/19 15:25 diphenhydramine AdvReac Mild STOMACH Verified 09/14/19 15:25 UPSET metformin AdvReac Mild ABDOMINAL Verified 09/14/19 15:25 PAIN metronidazole AdvReac Mild STOMACH Verified 09/14/19 15:25 UPSET morphine AdvReac Mild GI UPSET Verified 09/14/19 15:25 Review of Systems <JENNIFER Adams - Last Filed: 09/14/19 21:15> Review of Systems Narrative: REVIEW OF SYSTEMS: GENERAL: Denies fever or chills. HENT: Denies head trauma. EYE: Denies double vision or vision loss. CARDIOVASCULAR: Denies syncope. MUSCULOSKELETAL: Denies weakness, or deformities. INTEGUMENTARY: Complains of lesion to left shoulder, see HPI. NEURO: Denies numbness or tingling. Patient History <JENNIFER Adams - Last Filed: 09/14/19 21:15> Medical History Ankylosing spondylitis (Chronic Unknown) Diabetes (Chronic Unknown) Diverticulitis (Chronic Unknown) Fibromyalgia (Chronic Unknown) GERD (gastroesophageal reflux disease) (Chronic Unknown) Hx of rheumatic fever (Resolved Unknown) Hyperlipemia (Chronic Unknown) Osteopenia (Chronic 03/2013) Osteoporosis (Chronic 09/2014) Surgical History History of tonsillectomy Hx of arthroscopy of left knee (Resolved 01/2015) Status post breast reduction Status post cholecystectomy Status post hysterectomy Family History Grandmother Pernicious anemia Sister Diabetes mellitus Dementia Sister Diabetes mellitus CAD (coronary artery disease) Sister Diabetes mellitus CAD (coronary artery disease) Social History household members: spouse Smoking Status: Never smoker second hand exposure: Yes (my daughter smokes in my car.) alcohol intake: former substance use type: does not use Smoking Status: Never smoker Substance Use Type: does not use Exam <JENNIFER Adams - Last Filed: 09/14/19 21:15> Initial Vital Signs Initial Vital Signs: Vital Signs Temperature 98.7 F 09/14/19 15:21 Pulse Rate 73 09/14/19 15:21 Respiratory Rate 18 09/14/19 15:21 Blood Pressure 161/74 H 09/14/19 15:21 Pulse Oximetry 100 09/14/19 15:21 PHYSICAL EXAMINATION: GENERAL: Well groomed, alert, and cooperative. Answers questions promptly and appropriately. Vital signs noted. HENT: Normocephalic, atraumatic. RESPIRATORY: Normal respiratory rate, trachea midline, airway patent. No str idor, nasal flaring or accessory muscle use. MUSCULOSKELETAL: Normal gait and coordination. Equal tone and mass bilaterally. EXTREMITIES: CMS intact. Moves all extremities. SKIN: Warm, dry, soft, appropriate color for ethnicity. There is a for 3 cm in diameter annular lesion to left shoulder, this is slightly indurated with mildly erythematous edges. No exudate, no fluctuation. NEURO: Alert and Oriented X 3. Good coordination. PSYCH: Appropriate affect and mood. <Emmanuel Antonio DO - Last Filed: 09/15/19 02:29> Initial Vital Signs Initial Vital Signs: Vital Signs Temperature 98.7 F 09/14/19 15:21 Pulse Rate 73 09/14/19 15:21 Respiratory Rate 18 09/14/19 15:21 Blood Pressure 161/74 H 09/14/19 15:21 Pulse Oximetry 100 09/14/19 15:21 Course <JENNIFER Adams - Last Filed: 09/14/19 21:15> Vital Signs Vital signs: Vital Signs - 8 hr 09/14/19 15:21 09/14/19 18:26 Temperature 98.7 F Pulse Rate 73 88 Respiratory Rate 18 14 Blood Pressure 161/74 H 150/72 H Pulse Oximetry 100 99 <Emmanuel Antonio DO - Last Filed: 09/15/19 02:29> Vital Signs Vital signs: Vital Signs - 8 hr 09/14/19 15:21 09/14/19 18:26 Temperature 98.7 F Pulse Rate 73 88 Respiratory Rate 18 14 Blood Pressure 161/74 H 150/72 H Pulse Oximetry 100 99 MDM - Skin/Abscess/Foreign Bdy <Clara ElkinsJENNIFER - Last Filed: 09/14/19 21:15> Medical Records Attestation: I reviewed the patient's medical records. Lab Data Attestation: I reviewed the patient's lab results. [facility] Narrative Medical decision making narrative: 79-year-old female presents emergency department requesting to remove lesion on left shoulder that has been there for the past year. Lesion exhibits a small amount of erythema which could be inflammation surrounding lesion or the beginnings of an infectious process. Patient was given mupirocin to apply to the area to prevent infection. She was encouraged to keep the area covered and to refrain from stabbing or picking at it like she has been in the past. I counseled patient that lesion would require a more extensive biopsy and careful excision. She was referred to Dermatology for this as I suspect this may be a malignant lesion. This is less likely abscess due to lack of fluctuation. Differential also includes a abnormal sebaceous cyst. Patient and has been were frustrated that lesion was not removed at this time. I did not remove lesion as it has been in place for the past 1.5 years, is not acutely infected, and requires extensive skin excision and expertise Discharge Plan Departure Patient Disposition: Home Clinical Impression: Lesion of left shoulder Discharge Date/Time: 09/14/19 18:26 Activity Restrictions/Additional Instructions: Thank you for entrusting me with your care today. As discussed, I recommend following up with the provider relations manager listed below for evaluation and removal of lesion. Apply the ointment to the area 1 to 2 times a day. Keep the area clean and dry. Return emergency department for new or worsening symptoms such as chest pain, shortness of breath, fevers, or other concerns. Prescriptions: New mupirocin 2 % ointment 1 applictn TOP TID Qty: 22 RF: 0 No Action hyoscyamine sulfate [Hyosyne] 0.125 mg/mL drops 0.25 ml PO TID-QID RF: 0 Atorvastatin See Rx Instructions .ROUTE .COMPLEX RF: 0 (DME) Freestyle Jeffery Qty: 1 RF: 0 (DME) Glucose: Test Strips 0 .Route .MEDSUPPLY Qty: 100 RF: 3 cyclobenzaprine 10 MG tablet 10 mg PO PRN Qty: 0 RF: 0 Disabled Parking Permit Qty: 1 RF: 0 lidocaine 5 % adhesive patch,medicated 1 patch TOP DAILY PRN (Reason: pain) Qty: 15 RF: 3 ergocalciferol (vitamin D2) 50,000 unit capsule 50,000 unit PO QWEEK Qty: 90 RF: 1 dicyclomine 20 mg tablet 20 mg PO Q6HP PRN (Reason: Irritable bowel syndrome) Qty: 120 RF: 3 (DME) BD Ultra Fine 31g 5MM Qty: 100 RF: 3 albuterol sulfate [Ventolin HFA] 90 mcg/actuation HFA aerosol inhaler 2 inhalation INHALATION Q4-6H PRN (Reason: shortness of breath or wheezing) Qty: 18 RF: 0 megestrol 400 mg/10 mL (10 mL) suspension 400 mg PO DAILY Qty: 400 RF: 3 nabumetone 500 mg tablet 500 mg PO TID RF: 0 Referrals: Reva Shin MD [Non-Staff] - Batsheva Daniel PA-C [Primary Care Provider] -
[2019-09-14 18:26] VITALS: BP 150/72; PULSE 88; RESP 14; O2SAT 99
== END 2019-09-14 18:26 | disposition home or self-care (01) ==
PROVIDERS: Emergency Provider Nurse Practitioner; PCP Physician Assistant
DX: M75.92 Shoulder lesion, unspecified, left shoulder (principal)
CPT/HCPCS: 99281

== ENCOUNTER → 2019-10-07 13:04 | Outpatient (CLI) | payer MEDICARE, OTHER, SELFPAY ==
--- NOTE | 2019-10-07 13:07 | DI.RAD.S_ITS ---
PROCEDURE: FL BARIUM SWALLOW W SPEECH INDICATIONS: Difficulty swallowing; cough TECHNIQUE: Examination was conducted in conjunction with speech pathology per standard protocol. In the lateral projection, filming was performed of the patient swallowing. AP projection filming may also be performed with patient swallowing. COMPARISON: None. FINDINGS: Function: The oral preparatory phase appears normal, with proper containment. The subsequent oral propulsive phase, pharyngeal phase, and esophageal phase of swallowing also appear normal with all proffered substances. There was episodic laryngotracheal penetration but no aspiration. No pathologic vallecular pooling. Morphology: No cricopharyngeal bar is identified. No cervical esophageal webs. No Zenker's diverticulum. No strictures. IMPRESSION: Episodic laryngotracheal penetration without aspiration, predominantly with thin liquids. No delay in transit of the caliber to 13 mm barium tablet into the esophagus was observed. Please also refer to the dedicated speech therapy report that will be independently generated. Dictated by: Lennox Verma M.D. on 10/07/2019 at 14:56 Approved by: Lennox Verma M.D. on 10/07/2019 at 14:58
--- NOTE | 2019-10-08 14:07 | ST.SWALLOW ---
Visit Care Team Role Provider Type Batsheva Daniel PA-C Attending Provider Advanced Tooling Inspector Primary Care Provider Specialty: Medical Address: [address] [place] [address], [address], [place], [address] Email: [email or web address] Modified Barium Swallow Study BAGGAGE SECURITY CHECKER Modified Barium Swallow Study Start: 10/08/19 13:16 Freq: Status: Active Protocol: Document 10/07/19 13:16 LNK (Rec: 10/08/19 14:02 LNK [id number]) Modified Barium Swallow Study Total Time Visit Start Time 13:30 Visit Stop Time 14:00 Total Visit Minutes 30 Referral Referring Physician Batsheva Daniel MD Reason for Referral dysphagia Setting Setting Outpatient Care Patient Information Identification Type Name Patient History Randi Lopez was seen for a Modified Barium Swallow Study (MBSS) secondary to concerns regarding difficulty with swallowing. Randi noted that she has lost 50 pound over the past year (unintentional). Randi described her difficulty with swallowing as feeling as though foods get stuck in her throat. She will regurgitate the food up into her throat and re-swallow. Some times she will choke on liquids as well as her own saliva. She describes her swallow as feeling as tough she is swallowing a lump. Randi has a medical history that included ACDF in 1984, reflux x 6 years and diverticulitis. Subjective Observations Randi was seated in the fluoroscopy chair. The procedure and directions were provided to the pt. She agreed to proceed. Patient Positioning Position View Lateral Imaging Lateral View Textures Administered Trials Presented Thin Liquid via Spoon,Thin Liquid via Cup,[place] Liquid via Spoon,[place] Liquid via Cup,Pudding Thick Liquid via Spoon,Regular Textures,Barium Tablet Oral Phase Source: MBSIMP (TM) (C) Bolus Specific Scoring Grid Lip Closure WFL Tongue Control During Bolus Hold WFL Bolus Prep/Mastication WFL Bolus Transport/Lingual Motion WFL A/P Lingual Propulsion Delay No Oral Residue Mild Impairment Residue Clearing Mild Impairment Nasal Regurgitation No Additional Oral Phase Observations Oral residue for liquids and solids noted under the posterior aspect of the tongue . Pharyngeal Phase Source: MBSIMP (TM) (C) Bolus Specific Scoring Grid Delayed Initiation of Pharyngeal Swallow Yes: Premature spillage to the valeculla Soft Palate Elevation No Impairment (WNL) Tongue Base Strength/Range of Motion Moderate Impairment Residue Along the Tongue Base Yes Clearance of Residue Along Tongue Base Moderate Impairment Laryngeal Elevation Moderate Impairment Anterior Hyoid Movement Mild Impairment Epiglottic Range of Motion Mild Impairment Vallecular Residue Yes Clearance of Vallecular Residue Moderate Impairment Laryngeal Vestibular Closure Moderate Impairment Pharyngeal Stripping Wave Moderate Impairment Posterior Pharyngeal Wall Residue Yes Clearance of Posterior Pharyngeal Wall Moderate Impairment Residue Upper Esophageal Sphincter Opening Minimal Impairment Residue in the Pyriform Sinuses Yes Clearance of Residue in the Pyriform Mild Impairment Sinuses Esophageal Clearance Upright Position Minimal Impairment Pharyngoesophageal Backflow Observed No Additional Pharyngeal Phase Observations Premature spillage of the bolus observed to the valeculla pre-swallow. There was reduced elevation of the larynx with adequate forward excursion of the hyoid bone. The base of tongue was noted to have reduced strength. The posterior pharyngeal wall stripping/compression was reduced with no compression observed in the area of the medial and inferior pharyngeal constrictors. This reduced the control of the bolus as it flowed to the UES. The epiglottic inversion was observed to minimal to partial for most trials. Sometimes the bolus remained upright as the bolus entered the pharynx and minimally inverted until the bolus had passed. Then, there was full range of inversion; however the laryngeal seal was incomplete. For all trials the seal of the laryngeal vestibule was incomplete, with penetration into the vestibule for thin liquids (all trials) and nectar thick liquids (for consecutive swallows x3). Penetration into the vestibule resulted in residue remaining on the thyroid lamina and on the anterior aspect of the arytenoid cartilages. Pooling in the valeculla was consistent across all trials. At times the valecullar residue overflowed the epiglottic tip into the opening of the laryngeal vestibule. A liquid wash was not effective in clearing the valecullar residue. Overall, residue was noted on the tongue body, the tongue base, the valeculla, posterior pharyngeal wall, pyriform sinuses and in the laryngeal vestibule. No aspiration was observed. When penetration occurred, the pt responded with a small throat clear. When cued to cough, her cough was weak and nonproductive. Therapeutic strategies with head position/ chin tuck/ hard swallow were attempted. With a chin tuck ( look at your knees) straight ahead, there was no penetration observed with thin liquids x3 sips. A/P View Clinical Impressions Dysphagia Type pharyngeal dysphagia Rehabilitation Potential Excellent Patient Appropriate for Therapy Yes Recommendations Diet Liquids Order Thin Diet Order Regular Medication Recommendation As Tolerated Additional Dietary Needs Controlled Sips,No Straws Aspiration Precautions Recommended Precautions Upright at 90 Degrees, Alternate Liquids/Solids,Small Bites/Sips,Chin Tuck, Effortful Swallow,Liquids from Cup Treatment Plan Therapy Recommendations Outpatient Speech Therapy,Base of Tongue Exercises, Compensatory Strategy Education Recommended Referrals Primary Care Physician Additional Recommended Referrals Ouptpatient dysphagia therapy Compensatory Strategies Recommendations Alternate Liquids/Solids Additional Compensatory Strategies Tuck chin for each swallow. Recommended Swallow 2x
== END ==
PROVIDERS: PCP Physician Assistant; Visit Provider Physician Assistant
DX: R13.10 Dysphagia, unspecified; R05 Cough
CPT/HCPCS: 74230; 92611

== ENCOUNTER → 2020-05-06 15:07 | Outpatient (CLI) | payer MEDICARE, OTHER, SELFPAY | PROVIDERS: PCP Student in an Organized Health Care Education/Training Program; Referring Provider Student in an Organized Health Care Education/Training Program; Visit Provider Student in an Organized Health Care Education/Training Program | DX: Z13.820 Encounter for screening for osteoporosis (principal); M81.0 Age-related osteoporosis without current pathological fracture; Z78.0 Asymptomatic menopausal state; E11.9 Type 2 diabetes mellitus without complications; M06.9 Rheumatoid arthritis, unspecified; Z91.89 Other specified personal risk factors, not elsewhere classified; Z82.62 Family history of osteoporosis | CPT/HCPCS: 77080 ==

== ENCOUNTER → 2021-01-04 17:07 | Outpatient (CLI) | payer MEDICARE, OTHER, SELFPAY ==
[2021-01-04 17:41] LABS: Alanine Aminotransferase 20 IU/L (<35); Albumin 4.5 g/dL (3.5-5.0); Albumin Globulin Ratio 1.6 (1.0-2.8); Alkaline Phosphatase 62 U/L (38-126); Aspartate Aminotransferase 32 IU/L (14-36); BUN Creatinine Ratio 37.5 (6-22); Bilirubin Total 0.4 mg/dL (0.2-1.3); Blood Urea Nitrogen 21 mg/dL (7-17); Calcium 9.5 mg/dL (8.4-10.2); Carbon Dioxide 33 mmol/L (22-32); Chloride 101 mmol/L (98-107); Estimated Glomerular Filt Rate > 60.0 mL/min (>60); Globulin 2.9 g/dL (1.7-4.1); Glucose 125 mg/dL (80-110); HEMOLYSIS < 15 (0-50); Hemoglobin A1C% w Est Avg Glu 5.6 % (4.0-6.0); Potassium 3.9 mmol/L (3.4-5.1); Sodium 140 mmol/L (137-145); Total Protein 7.4 g/dL (6.3-8.2)
[2021-01-04 18:28] LABS: Creatinine Urine Random 38.4 mg/dL
[2021-01-04 18:33] LABS: Microalbumi Creatinin Ratio Ur 98.9 ug/mg CR (<30); Microalbumin Urine Random 3.8 mg/dL (0-1.6)
== END ==
PROVIDERS: PCP Student in an Organized Health Care Education/Training Program; Referring Provider Student in an Organized Health Care Education/Training Program; Visit Provider Student in an Organized Health Care Education/Training Program
DX: E11.9 Type 2 diabetes mellitus without complications (principal); Z79.4 Long term (current) use of insulin; Z79.899 Other long term (current) drug therapy
CPT/HCPCS: 36415; 80053; 82043; 82570; 83036

== ENCOUNTER → 2021-11-14 15:06 | Outpatient (CLI) | payer MEDICARE, OTHER, SELFPAY ==
[2021-11-14 16:12] LABS: Hemoglobin A1C% w Est Avg Glu 6.1 % (4.0-6.0)
[2021-11-14 16:30] LABS: BUN Creatinine Ratio 37.5 (6-22); Blood Urea Nitrogen 27 mg/dL (7-17); Calcium 9.2 mg/dL (8.4-10.2); Carbon Dioxide 30 mmol/L (22-32); Chloride 102 mmol/L (98-107); Estimated Glomerular Filt Rate > 60.0 mL/min (>60); Glucose 108 mg/dL (80-110); HEMOLYSIS < 15 (0-50); Potassium 3.6 mmol/L (3.4-5.1); Sodium 139 mmol/L (137-145)
[2021-11-14 16:38] LABS: Prealbumin 27.9 mg/dL (17.6-36.0)
[2021-11-14 16:49] LABS: Vitamin D 25 Hydroxy (D3) 71.4 ng/mL (30.0-100.0)
[2021-11-14 17:04] LABS: TSH w/ Reflex to FT4 1.72 uIU/mL (0.47-4.68)
[2021-11-14 18:29] LABS: Creatinine Urine Random 125.9 mg/dL
[2021-11-14 18:33] LABS: Microalbumin Urine Random 5.3 mg/dL (0-1.6)
[2021-11-15 09:09] LABS: Calcium 9.1 mg/dL (8.7-10.3); Parathyroid Hormone, Intact 45 pg/mL (15-65)
== END ==
PROVIDERS: PCP Student in an Organized Health Care Education/Training Program; Referring Provider Student in an Organized Health Care Education/Training Program; Visit Provider Student in an Organized Health Care Education/Training Program
DX: E11.9 Type 2 diabetes mellitus without complications (principal); E21.3 Hyperparathyroidism, unspecified; R63.4 Abnormal weight loss
CPT/HCPCS: 36415; 80048; 82043; 82306; 82310; 82570; 83036; 83970; 84134; 84443

== ENCOUNTER → 2021-11-16 17:39 | Outpatient (CLI) | payer MEDICARE, OTHER, SELFPAY ==
[2021-11-17 12:38] LABS: Fecal Immunochemical Test Negative (Negative)
== END ==
PROVIDERS: PCP Student in an Organized Health Care Education/Training Program; Referring Provider Student in an Organized Health Care Education/Training Program; Visit Provider Student in an Organized Health Care Education/Training Program
DX: R63.4 Abnormal weight loss (principal); Z12.11 Encounter for screening for malignant neoplasm of colon
CPT/HCPCS: 82274

== ENCOUNTER → 2022-03-06 16:48 | Outpatient (CLI) | payer MEDICARE, OTHER, SELFPAY ==
[2022-03-06 17:46] LABS: Hemoglobin A1C% w Est Avg Glu 6.6 % (4.0-6.0)
== END ==
PROVIDERS: PCP Student in an Organized Health Care Education/Training Program; Referring Provider Student in an Organized Health Care Education/Training Program; Visit Provider Student in an Organized Health Care Education/Training Program
DX: E11.9 Type 2 diabetes mellitus without complications (principal); Z79.4 Long term (current) use of insulin
CPT/HCPCS: 36415; 83036

== ENCOUNTER → 2022-03-16 15:01 | Outpatient (CLI) | payer MEDICARE, OTHER, SELFPAY ==
[2022-03-16 16:03] LABS: Creatinine Urine Random 14.4 mg/dL
[2022-03-16 16:13] LABS: Microalbumin Urine Random < 0.6 mg/dL (0-1.6)
== END ==
PROVIDERS: PCP Student in an Organized Health Care Education/Training Program; Referring Provider Student in an Organized Health Care Education/Training Program; Visit Provider Student in an Organized Health Care Education/Training Program
DX: R80.9 Proteinuria, unspecified (principal)
CPT/HCPCS: 82043; 82570

== ENCOUNTER → 2022-06-08 13:20 | Outpatient (CLI) | payer MEDICARE, OTHER, SELFPAY ==
[2022-06-08 15:49] LABS: Hemoglobin A1C% w Est Avg Glu 6.5 % (4.0-6.0)
[2022-06-08 16:12] LABS: BUN Creatinine Ratio 29.9 (6-22); Blood Urea Nitrogen 23 mg/dL (7-17); Calcium 8.8 mg/dL (8.4-10.2); Carbon Dioxide 32 mmol/L (22-32); Chloride 97 mmol/L (98-107); Estimated Glomerular Filt Rate > 60 mL/min (>60); Glucose 183 mg/dL (80-110); HEMOLYSIS < 15 (0-50); Potassium 3.4 mmol/L (3.4-5.1); Sodium 138 mmol/L (137-145)
[2022-06-08 16:16] LABS: BUN Creatinine Ratio 28.6 (6-22); Blood Urea Nitrogen 22 mg/dL (7-17); Estimated Glomerular Filt Rate > 60 mL/min (>60)
== END ==
PROVIDERS: PCP Student in an Organized Health Care Education/Training Program; Referring Provider Internal Medicine; Visit Provider Internal Medicine
DX: E11.9 Type 2 diabetes mellitus without complications (principal); R80.9 Proteinuria, unspecified; Z79.4 Long term (current) use of insulin; I10 Essential (primary) hypertension
CPT/HCPCS: 36415; 80048; 82565; 83036; 84520

== ENCOUNTER → 2022-07-12 14:36 | Outpatient (CLI) | payer MEDICARE, OTHER, SELFPAY ==
--- NOTE | 2022-07-12 14:37 | DI.ECHO.S_ITS ---
[facility] +---------+ : : [address] : : : : [id number] : : : : Phone: [phone]+ Echocardiogram Report + + :Name: GISELA KING Study Date: 07/12/2022 Height: 63.5 in: :[facility] ReadingLocation: Weight: 94 lb : : Gender: Female BSA: 1.4 m2 : :: 1940 Age: 82 yrs BP: 167/76 mmHg: :Reason For Study: HISTORY OF RHEUMATIC FEVER : :Ordering Physician: ANTONIO, : :NOHEMY Performed By: Joslyn Shin : :Referring: NOHEMY ALVAREZ : + + Interpretation Summary The left ventricle is grossly normal size. The ejection fraction is estimated to be 60-65%. The right ventricle is normal in size and function. There is mild to moderate mitral regurgitation. There is mild luminal irregularity and echogenicity in the abdominal aorta, suggestive of aortic atherosclerotic disease. Moderate atherosclerotic plaque(s) in the aortic arch. The IVC is of normal diameter and collapses greater than 50% with a sniff. This suggests a low right atrial pressure of 3 mm Hg. Procedure: A two-dimensional transthoracic echocardiogram with color flow and Doppler was performed. The study quality was technically adequate. There is no prior echocardiogram noted for this patient. The patient was in sinus rhythm with heart rates between 62-87 bpm during the exam. Left Ventricle: Proximal septal thickening is noted. There is no echo evidence for significant left ventricular outflow tract obstruction. The left ventricle is grossly normal size. There is no thrombus. A false chord is noted (normal variant). The ejection fraction is estimated to be 60-65%. Septal motion is consistent with conduction abnormality. Diastolic parameters suggest a relaxation abnormality of the left ventricle, consistent with probable normal filling pressures. Right Ventricle: The right ventricle is normal in size and function. Atria: The left atrial size is normal. Right atrial size is normal. There is no Doppler evidence for an interatrial shunt. Mitral Valve: There is mild mitral annular calcification. The mitral valve leaflets appear mildly thickened, but open well. The mitral valve chordae are thickened and/or calcified. There is mild to moderate mitral regurgitation. Aortic Valve: The aortic valve is trileaflet. The aortic valve opens well. The aortic valve is mildly calcified. There is no aortic valve stenosis. No aortic regurgitation is present. Tricuspid Valve: There is tricuspid annular calcification. There is trace tricuspid regurgitation. Pulmonary artery pressures cannot be estimated because of the lack of a measurable TR jet velocity. Pulmonic Valve: The pulmonic valve is not well visualized. There is no pulmonic valvular regurgitation. Great Vessels: The aortic root is normal size. The ascending aorta could not be visualized. There is mild luminal irregularity and echogenicity in the abdominal aorta, suggestive of aortic atherosclerotic disease. Moderate atherosclerotic plaque(s) in the aortic arch. The IVC is of normal diameter and collapses greater than 50% with a sniff. This suggests a low right atrial pressure of 3 mm Hg. Pericardium/ Pleura There is no pericardial effusion. There is no pleural effusion. MMode/2D Measurements & Calculations LVIDd: 3.7 cm LVOT diam: 2.1 cm LVIDs: 2.5 cm Ao root diam: 2.9 cm FS: 34.0 % Ao Arch Diam (Prox Trans): 2.2 cm IVSd: 0.96 cm LVPWd: 0.81 cm LV irby. diameter/BSA (cm/m^2): 2.6 LV sys. diameter/BSA (cm/m^2): 1.7 LA A2 area: 11.6 cm2 RA long axis: 3.9 cm LA A4 area: 8.5 cm2 RA area: 8.6 cm2 LA length (vol): 3.5 cm RA vol: 16.4 ml LA vol: 23.8 ml RA : 11.6 ml/m2 LA vol index: 16.9 ml/m2 IVC diam: 1.3 cm RVD1 (basal): 2.6 cm RVD2 (mid): 2.5 cm TAPSE: 1.8 cm Doppler Measurements & Calculations Ao V2 max: 104.1 cm/sec LVOT Max Andrzej: 72.6 cm/sec Ao V2 mean: 79.9 cm/sec LV V1 max P.1 mmHg Ao max P.3 mmHg LV V1 VTI: 19.0 cm Ao mean P.7 mmHg PEYMAN(I,D): 2.7 cm2 Ao V2 VTI: 23.1 cm PEYMAN(V,D): 2.3 cm2 sev ratio: 0.82 PEYMAN indexed to BSA (cm^2/m^2): 1.9 MV E max andrzej: 77.1 cm/sec PA V2 max: 89.0 cm/sec MV A max andrzej: 84.2 cm/sec PA V2 mean: 57.8 cm/sec MV E/A: 0.91 PA mean P.5 mmHg Med Peak E' Andrzej: 7.2 cm/sec PA pr(Accel): 22.5 mmHg E/E' med: 10.8 Lat Peak E' Andrzej: 9.6 cm/sec E/E' lat: 8.0 E/e' average: 9.4 MV dec time: 0.28 sec SV(LVOT): 63.5 ml Reading Physician:04:33 PM
== END ==
PROVIDERS: PCP Student in an Organized Health Care Education/Training Program; Referring Provider Student in an Organized Health Care Education/Training Program; Visit Provider Student in an Organized Health Care Education/Training Program
DX: Z86.79 Personal history of other diseases of the circulatory system (principal); I34.0 Nonrheumatic mitral (valve) insufficiency
CPT/HCPCS: 93306

== ENCOUNTER → 2022-12-17 14:28 | Outpatient (CLI) | payer MEDICARE, OTHER, SELFPAY ==
[2022-12-17 15:46] LABS: BUN Creatinine Ratio 34.7 (6-22); Blood Urea Nitrogen 25 mg/dL (7-17); Calcium 9.1 mg/dL (8.4-10.2); Carbon Dioxide 33 mmol/L (22-32); Chloride 99 mmol/L (98-107); Cholesterol 183 mg/dL (140-199); Estimated Glomerular Filt Rate > 60 mL/min (>60); Glucose 121 mg/dL (80-110); HDL Cholesterol 77 mg/dL (40-60); HEMOLYSIS < 15 (0-50); LDL Cholesterol Calculated 84 mg/dL (<100); Potassium 3.5 mmol/L (3.4-5.1); Sodium 139 mmol/L (137-145); Triglycerides 112 mg/dL (35-150)
[2022-12-17 15:47] LABS: Creatinine Urine Random 84.4 mg/dL
[2022-12-17 15:54] LABS: Microalbumi Creatinin Ratio Ur 8.2 ug/mg CR (<30); Microalbumin Urine Random 0.7 mg/dL (0-1.6)
[2022-12-17 16:10] LABS: Vitamin D 25 Hydroxy (D3) 90.7 ng/mL (30.0-100.0)
[2022-12-18 07:53] LABS: Labcorp Hemoglobin (Hb) A1c 6.6 % (4.8-5.6)
[2022-12-19 07:59] LABS: Parathyroid Hormone Int 23 pg/mL (15-65)
== END ==
PROVIDERS: PCP Student in an Organized Health Care Education/Training Program; Referring Provider Student in an Organized Health Care Education/Training Program; Visit Provider Student in an Organized Health Care Education/Training Program
DX: M81.0 Age-related osteoporosis without current pathological fracture; E11.9 Type 2 diabetes mellitus without complications; R80.9 Proteinuria, unspecified; Z79.4 Long term (current) use of insulin; E21.3 Hyperparathyroidism, unspecified; R09.89 Other specified symptoms and signs involving the circulatory and respiratory systems; E11.69 Type 2 diabetes mellitus with other specified complication; E78.5 Hyperlipidemia, unspecified
CPT/HCPCS: 36415; 80048; 80061; 82043; 82306; 82570; 83036; 83970

== ENCOUNTER → 2023-02-15 14:52 | Outpatient (CLI) | payer MEDICARE, OTHER, SELFPAY ==
--- NOTE | 2023-02-15 14:53 | DI.RAD.S_ITS ---
Bone Density Report Name: GISELA KING Age: 82 Sex: Female Ethnicity: White Date of : 1940 Indication: postmenopausal osteoporosis; monitoring treatment; prior fracture; Referring Provider: GOOD VÁZQUEZ Study: Bone densitometry was performed. Exam Date: February 15, 2023 Accession number: [id number] Bone Density: Region BMD T-score Z-score Classification AP Spine(L1-L4) 0.870 -1.6 1.2 Osteopenia Femoral Neck (Left) 0.420 -3.9 -1.4 Osteoporosis Total Hip (Left) 0.592 -2.9 -0.6 Osteoporosis Femoral Neck (Right) 0.471 -3.4 -0.9 Osteoporosis Total Hip (Right) 0.577 -3.0 -0.7 Osteoporosis Total Hip Mean 0.584 -3.0 -0.7 Osteoporosis World Health Organization criteria for BMD impression classify patients as: Normal (T-score at or above -1.0), Osteopenia (T-score between -1.0 and -2.5), or Osteoporosis (T-score at or below -2.5). 10-year Fracture Risk: FRAX not reported because: Some T-score for Spine Total or Hip Total or Femoral Neck at or below -2.5 Prior hip or vertebral fracture Treated for osteoporosis Previous Exams: -- Region Exam Age BMD T-score BMD Change BMD Change Date g/cm2 vs Baseline vs Previous -- AP Spine (L1-L4) 02/15/2023 82 0.870 -1.6 -0.080 (-8.4%)# -0.080 (-8.4%)# 05/06/2020 80 0.949 -0.9 Total Hip(Left) 02/15/2023 82 0.592 -2.9 0.059 (11.2%)# 0.059 (11.2%)# 05/06/2020 80 0.533 -3.4 Total Hip(Right) 02/15/2023 82 0.577 -3.0 0.010 (1.8%)# 0.010 (1.8%)# 05/06/2020 80 0.567 -3.1 -- *Denotes significance at 95% confidence level, LSC for AP Spine = 0.022 g/cm2, LSC for Total Hip = 0.027 g/cm2 # Denotes dissimilar scan types or analysis methods Impression: The patient has established osteoporosis, based on the Left Femoral Neck T-score and the existence of a prior fracture. The patient has risk factors, including: previous fracture. No significant bone loss was observed. Discussion: PATIENT UNDER TREATMENT WITH NO SIGNIFICANT BMD LOSS SINCE LAST EXAM. In an untreated patient, BMD typically declines with age. A lack of decline or gain is usually a sign that treatment is efficacious and fracture risk is reduced. It is important to ask patients whether they are taking their medications and to encourage continued and appropriate compliance with their osteoporosis therapies to reduce fracture risk. It is also important to review their risk factors and encourage appropriate calcium and vitamin D intakes, exercise, fall prevention and other lifestyle measures. Follow-Up: Consider a repeat BMD and Vertebral Fracture Assessment (VFA) exam in 2 years or sooner if medically necessary, to reassess this patient's status. Reported by: DORON CHENG M.D. on 02/15/2023 5:24:00 PM.
== END ==
PROVIDERS: PCP Pediatrics; Referring Provider Pediatrics; Visit Provider Pediatrics
DX: M81.0 Age-related osteoporosis without current pathological fracture (principal)
CPT/HCPCS: 77080

== ENCOUNTER 2023-03-01 15:47 | Emergency (ER) | payer MEDICARE, OTHER, SELFPAY ==
[2023-03-01 16:05] VITALS: BP 148/67; PULSE 77; RESP 14; TEMP 37.2; O2SAT 99; BMI 15.5
--- NOTE | 2023-03-01 19:04 | ED_ITS ---
HPI - Eye Problem General Chief complaint: Eye Problems Stated complaint: Bloodshot eye Time Seen by Provider: 03/01/23 18:17 Source: patient Mode of arrival: Ambulatory History of Present Illness HPI Narrative: 82-year-old female nonsmoker with history of diabetes, hyperparathyroidism, hyperlipidemia presents with a chief complaint of a ?bloodshot eye? this morning. She states that she felt like she had an eyelash in her eye a few days ago and was looking at her eye in a magnifying glass and was unable to remove anything. She felt a small bit of burning in her left eye but no significant pain. She denies any trauma or injury otherwise. She denies any change in her vision. She is otherwise well and free of complaint. Related Data Previous Rx's Medication Instructions Recorded lidocaine 5 % topical patch 1 patch topical DAILY PRN pain #15 09/15/18 ea albuterol sulfate 90 mcg/actuation 2 inhalation inhalation Q4-6H PRN 11/07/19 aerosol inhaler (Ventolin HFA) shortness of breath or wheezing #6.7 grams hyoscyamine sulfate 0.125 mg/mL 0.25 ml PO TID-QID #15 mL 04/21/20 oral drops (Hyosyne) BD Ultra Fine 31g 5MM #100 ea 12/05/20 dicyclomine 20 mg tablet 20 mg PO Q6HP PRN Irritable bowel 02/19/22 syndrome #90 tabs flash glucose sensor (FreeStyle #6 ea 04/26/22 Jeffery 14 Day Sensor kit) lisinopril 10 1 tab PO DAILY #90 tabs 06/26/22 mg-hydrochlorothiazide 12.5 mg tablet nabumetone 500 mg tablet 500 mg PO TID #270 tabs 11/20/22 hydroxyzine pamoate 25 mg capsule 25 mg PO BEDTIME #90 caps 12/03/22 atorvastatin 10 mg tablet 10 mg PO BEDTIME #90 tabs 02/04/23 cyclobenzaprine 10 mg tablet 10 mg PO TID PRN muscle spasm #30 02/04/23 tabs denosumab 60 mg/mL subcutaneous 60 mg SUBCUT [id number] osteoporosis 02/04/23 syringe (Prolia) #1 mL cholecalciferol (vitamin D3) 1,250 1,250 mcg PO .COMPLEX #6 caps 02/15/23 mcg (50,000 unit) capsule ergocalciferol (vitamin D2) 1,250 1,250 mcg PO Q2W #6 caps 02/21/23 mcg (50,000 unit) capsule Allergies Allergy/AdvReac Type Severity Reaction Status Date / Time cloxacillin Allergy Intermediate HIVES Verified 03/01/23 16:09 Penicillins Allergy Intermediate HIVES Verified 03/01/23 16:09 zinc Allergy Intermediate HIVES Verified 03/01/23 16:09 aspirin AdvReac Intermediate SEVERE Verified 03/01/23 16:09 REFLUX acetaminophen AdvReac Mild STOMACH Verified 03/01/23 16:09 UPSET cephalexin AdvReac Mild STOMACH Verified 03/01/23 16:09 PAINS ciprofloxacin AdvReac Mild STOMACH Verified 03/01/23 16:09 PAINS codeine AdvReac Mild GI UPSET Verified 03/01/23 16:09 diphenhydramine AdvReac Mild STOMACH Verified 03/01/23 16:09 UPSET metformin AdvReac Mild ABDOMINAL Verified 03/01/23 16:09 PAIN metronidazole AdvReac Mild STOMACH Verified 03/01/23 16:09 UPSET morphine AdvReac Mild GI UPSET Verified 03/01/23 16:09 Review of Systems Review of Systems Narrative: GENERAL: Denies chills, fatigue, malaise, fever, sweats. HEENT: See HPI RESPIRATORY: Denies dyspnea, cough, wheezing, hemoptysis, sputum. CARDIOVASCULAR: Denies chest pain, palpitations, orthopnea, edema, GASTROINTESTINAL: Denies nausea, vomiting, abdominal pain, diarrhea, constipation, melena. : Denies dysuria, frequency, incontinence, hematuria, urinary retention. MUSCULOSKELETAL: denies weakness, joint pain, or bony pain SKIN: Denies rash, skin lesions, or other NEUROLOGIC: Denies weakness, headache, numbness, change in speech, confusion, seizures, incoordination. PSYCHIATRIC: No concerning psychosocial issues. 12 point review of systems is negative except for those stated above Patient History Medical History Ankylosing spondylitis (Unknown) Cervicalgia Controlled type 2 diabetes mellitus without complication Diverticulosis of large intestine (01/26/11) Fibromyalgia (Unknown) GERD (gastroesophageal reflux disease) (Unknown) Hx of rheumatic fever (Unknown) Hyperlipidemia associated with type 2 diabetes mellitus Hyperparathyroidism Irritable bowel syndrome Osteoporosis (01/26/11) Tubular adenoma of colon Surgical History History of tonsillectomy Hx of arthroscopy of left knee (01/2015) Status post breast reduction Status post cervical spinal fusion Status post cholecystectomy Status post hysterectomy Family History Grandmother Pernicious anemia Sister Diabetes mellitus Dementia Sister Diabetes mellitus CAD (coronary artery disease) Sister Diabetes mellitus CAD (coronary artery disease) Social History household members: spouse Smoking Status: Never smoker second hand exposure: Yes (my daughter smokes in my car.) alcohol intake: former substance use type: does not use Smoking Status: Never smoker alcohol intake frequency: 0-2 drinks per day Substance Use Type: does not use Exam Narrative Exam Narrative: GENERAL: [82] year old patient appears stated age. Well-developed patient, in mild distress. HEAD: Atraumatic. Normocephalic. EYES: Pupils equal round and reactive. Extraocular motions intact. Moderate left eye subconjunctival hemorrhage. No evidence of hyphema. No foreign body, upper lid everted. No obvious evidence of dye uptake. ENT: Nose without bleeding, purulent drainage. Throat without erythema, tonsilla r hypertrophy or exudate. Airway patent. NECK: Trachea midline. Non tender CARDIOVASCULAR: Regular rate and rhythm without murmurs, gallops, or rubs. RESPIRATORY: Clear to auscultation. Breath sounds equal bilaterally. No wheezes, rales, or rhonchi. GASTROINTESTINAL: Abdomen soft, non-tender, nondistended. EXTREMITIES: No edema or joint tenderness. BACK: Nontender without deformity or crepitance. No flank tenderness. NEURO: AOx3. SKIN: No rash or erythema of visible areas Initial Vital Signs Initial Vital Signs: Vital Signs Temperature 98.9 F 03/01/23 16:05 Pulse Rate 77 03/01/23 16:05 Respiratory Rate 14 03/01/23 16:05 Blood Pressure 148/67 H 03/01/23 16:05 Pulse Oximetry 99 03/01/23 16:05 Oxygen Delivery Method Room Air 03/01/23 16:05 Course Orders Ordered: Discontinued Medications Fluorescein Sodium (Fluorescein 1 Mg Strip) 1 mg EYE-LEFT NOW ONE Stop: 03/01/23 19:12 Last Admin: 03/01/23 19:16 Dose: 1 mg Documented By: RADHA Proparacaine HCl (Proparacaine 0.5% Ophth Dora) 1 drops EYE-LEFT NOW ONE Stop: 03/01/23 19:11 Last Admin: 03/01/23 19:15 Dose: 1 drop Documented By: RADHA Vital Signs Vital signs: Vital Signs - 8 hr 03/01/23 16:05 03/01/23 19:13 Temperature 98.9 F Pulse Rate 77 76 Respiratory Rate 14 18 Blood Pressure 148/67 H 192/81 H Pulse Oximetry 99 100 Oxygen Delivery Method Room Air Room Air MDM - Eye Problem MDM Narrative Medical decision making narrative: [82] year old patient presents with left eye subconjunctival hemorrhage Multiple etiologies for patient's symptoms considered including, but not limited to: [Abrasion versus foreign body versus ulceration versus other] Prior Charts reviewed in our EMR Primary Historian: patient Patient's symptoms improved over duration of stay with above-stated therapies. Findings and discharge diagnosis discussed with patient/family followed by verbalization of understanding Return precautions discussed with patient/family whom verbalize understanding of diagnosis and plan Discharge Plan Departure Patient Disposition: Home Clinical Impression: Subconjunctival hemorrhage Qualifiers: Laterality: left Qualified Code(s): H11.32 - Conjunctival hemorrhage, left eye Instructions: DI for Subconjunctival Hemorrhage Activity Restrictions/Additional Instructions: *You have been diagnosed with [left eye subconjunctival hemorrhage.] *What to do: *Please continue to take your regular medications as directed. [ ] New medication prescriptions sent to your pharmacy: [ ] [ ] New medication written as a paper prescription [ ] No new medications given *Please follow up with your eye doctor in 2-3 days, call for an appointment. Let them know you were seen in the Emergency Department and that we ask that you be seen in follow up. We will electronically transmit a record of today's note if your PCP is in our system *If you do not have a primary care provider please contact the [facility] Resource line at [phone]. They will ask some questions about your medical history and help get you set up with a doctor in the community. *Return to Emergency Department if you should have any new, worsening or concerning symptoms, such as [fever greater than 101 F, shaking chills, worsening pain, persistent vomiting or other bothersome symptoms] Prescriptions: No Action lidocaine 5 % adhesive patch,medicated 1 patch TOP DAILY PRN (Reason: pain) Qty: 15 3RF Rx Instructions: leave on most painful area for 12 hrs albuterol sulfate [Ventolin HFA] 90 mcg/actuation HFA aerosol inhaler 2 inhalation INHALATION Q4-6H PRN (Reason: shortness of breath or wheezing) Qty: 6.7 0RF (DME) BD Ultra Fine 31g 5MM Qty: 100 3RF Dose Instruction: As directed Rx Instructions: Andreas for use with Victoza dicyclomine 20 mg tablet 20 mg PO Q6HP PRN (Reason: Irritable bowel syndrome) Qty: 90 3RF lisinopril-hydrochlorothiazide 10-12.5 mg tablet 1 tab PO DAILY Qty: 90 3RF nabumetone 500 mg tablet 500 mg PO TID Qty: 270 1RF hydroxyzine pamoate 25 mg capsule 25 mg PO BEDTIME Qty: 90 0RF cholecalciferol (vitamin D3) 1,250 mcg (50,000 unit) capsule 1,250 mcg PO .COMPLEX Qty: 6 3RF Rx Instructions: 1,250 mcg orally twice per month; ergocalciferol (vitamin D2) 1,250 mcg (50,000 unit) capsule 1,250 mcg PO Q2W Qty: 6 3RF hyoscyamine sulfate [Hyosyne] 0.125 mg/mL drops 0.25 ml PO TID-QID Qty: 15 11RF Rx Instructions: Alternate with Dicyclomine (DME) FreeStyle Jeffery 14 Day Sensor Kit See Rx Instructions .Route Qty: 6 6RF Rx Instructions: Use to check Blood Sugars 1x daily cyclobenzaprine 10 mg tablet 10 mg PO TID PRN (Reason: muscle spasm) Qty: 30 1RF atorvastatin 10 mg tablet 10 mg PO BEDTIME Qty: 90 1RF Prolia 60 mg/mL syringe 60 mg SUBCUT [id number] Qty: 1 0RF Hold Instructions: On hold. Upcoming dental procedure early Rx Instructions: Last done 11/23/21 per records. Will ask pharmacy to get med to us for admin soon. May require patient bringing to clinic if not possible per pharmacy. Referrals: Stu Eduardo MD [Physician] - Rick Kirby MD [Primary Care Provider] - Stand Alone Forms: Patient Portal/API
[2023-03-01 19:13] VITALS: BP 192/81; PULSE 76; RESP 18; O2SAT 100
[2023-03-01] MEDS: PROPARACAINE 0.5% OPHTH SOL 1 DROPS EYE-LEFT (19:15)
[2023-03-01] MEDS: FLUORESCEIN 1 MG STRIP EYE-LEFT (19:16)
[2023-03-01 19:35] VITALS: BP 197/86; PULSE 72; RESP 16; TEMP 36.9; O2SAT 100
== END 2023-03-01 19:36 | disposition home or self-care (01) ==
PROVIDERS: Emergency Provider Emergency Medicine; PCP Pediatrics
DX: H11.32 Conjunctival hemorrhage, left eye (principal); Z79.899 Other long term (current) drug therapy
CPT/HCPCS: 99282

== ENCOUNTER → 2023-06-24 11:34 | Outpatient (CLI) | payer MEDICARE, OTHER, SELFPAY ==
[2023-06-24 12:21] LABS: Hemoglobin A1C% w Est Avg Glu 6.5 % (4.0-6.0)
[2023-06-24 12:25] LABS: Add Manual Diff / Slide Review NO; Basophils Absolute Auto 0 /uL (0-100); Basophils Percent Auto 0.5 % (0-2); Eosinophils Absolute Auto 100 /uL (0-450); Eosinophils Percent Auto 2.8 % (2-4); Hematocrit 35.7 % (36-46); Hemoglobin 12.1 g/dL (12.0-16.0); Lymphocytes Absolute Auto 2400 /uL (1100-4500); Lymphocytes Percent Auto 44.2 % (25-40); Mean Corpuscular HGB Conc 33.8 % (30-36); Mean Corpuscular Hemoglobin 30.5 PG (26-34); Mean Corpuscular Volume 90.3 fL (80-100); Monocytes Absolute Auto 400 /uL (0-900); Monocytes Percent Auto 7.9 % (3-14); Neutrophils Absolute Auto 2400 /uL (1500-7000); Neutrophils Percent Auto 44.6 % (50-75); Platelet Count 180 X10^3/uL (150-400); Red Blood Cell Count 3.96 X10^6/uL (4.0-5.2); Red Cell Distribution Width 13.9 % (11.6-14.8); White Blood Cell Count 5.4 X10^3/uL (4.5-11.0)
[2023-06-24 12:33] LABS: Alanine Aminotransferase 31 IU/L (<35); Albumin Globulin Ratio 1.7 (1.0-2.8); Alkaline Phosphatase 62 U/L (38-126); Aspartate Aminotransferase 29 IU/L (14-36); BUN Creatinine Ratio 45.3 (6-22); Bilirubin Total 0.6 mg/dL (0.2-1.3); Blood Urea Nitrogen 34 mg/dL (7-17); Calcium 9.4 mg/dL (8.4-10.2); Carbon Dioxide 29 mmol/L (22-32); Chloride 100 mmol/L (98-107); Estimated Glomerular Filt Rate > 60 mL/min (>60); Globulin 2.3 g/dL (1.7-4.1); Glucose 223 mg/dL (80-110); HEMOLYSIS < 15 (0-50); Potassium 3.9 mmol/L (3.4-5.1); Sodium 137 mmol/L (137-145); Total Protein 6.3 g/dL (6.3-8.2); Uric Acid 4.9 mg/dL (2.5-6.2)
[2023-06-24 13:03] LABS: TSH w/ Reflex to FT4 1.77 uIU/mL (0.47-4.68)
[2023-06-24 13:23] LABS: Vitamin B12 910 pg/mL (239-931)
== END ==
PROVIDERS: PCP Pediatrics; Referring Provider Family Medicine; Visit Provider Family Medicine
DX: Z00.00 Encounter for general adult medical examination without abnormal findings (principal); R09.89 Other specified symptoms and signs involving the circulatory and respiratory systems; E11.9 Type 2 diabetes mellitus without complications; E11.69 Type 2 diabetes mellitus with other specified complication; E78.5 Hyperlipidemia, unspecified
CPT/HCPCS: 36415; 80053; 82607; 83036; 84443; 84550; 85025

== ENCOUNTER → 2024-12-14 11:09 | Outpatient (CLI) | payer OTHER, SELFPAY ==
[2024-12-14 12:05] LABS: Hematocrit 36.9 % (36-46); Hemoglobin 12.4 g/dL (12.0-16.0); Mean Corpuscular HGB Conc 33.5 % (30-36); Mean Corpuscular Hemoglobin 30.3 PG (26-34); Mean Corpuscular Volume 90.4 fL (80-100); Platelet Count 162 X10^3/uL (150-400); Red Blood Cell Count 4.08 X10^6/uL (4.0-5.2); Red Cell Distribution Width 14.2 % (11.6-14.8); White Blood Cell Count 5.4 X10^3/uL (4.5-11.0)
[2024-12-14 12:12] LABS: Hemoglobin A1C% w Est Avg Glu 6.4 % (4.0-6.0)
[2024-12-14 12:20] LABS: Alanine Aminotransferase 22 IU/L (<35); Albumin 4.4 g/dL (3.5-5.0); Albumin Globulin Ratio 1.8 (1.0-2.8); Alkaline Phosphatase 89 U/L (38-126); Aspartate Aminotransferase 31 IU/L (14-36); BUN Creatinine Ratio 31.2 (6-22); Bilirubin Total 0.9 mg/dL (0.2-1.3); Blood Urea Nitrogen 24 mg/dL (7-17); Calcium 9.7 mg/dL (8.4-10.2); Carbon Dioxide 32 mmol/L (22-32); Chloride 101 mmol/L (98-107); Cholesterol 192 mg/dL (140-199); Estimated Glomerular Filt Rate > 60 mL/min (>60); Globulin 2.4 g/dL (1.7-4.1); Glucose 107 mg/dL (80-110); HDL Cholesterol 100 mg/dL (40-60); HEMOLYSIS < 15 (0-50); LDL Cholesterol Calculated 77 mg/dL (<100); Potassium 3.6 mmol/L (3.4-5.1); Sodium 140 mmol/L (137-145); Total Protein 6.8 g/dL (6.3-8.2); Triglycerides 74 mg/dL (35-150)
[2024-12-14 13:00] LABS: Vitamin D 25 Hydroxy (D3) 44.4 ng/mL (30.0-100.0)
== END ==
LOC: LAB 11:11
PROVIDERS: PCP Family Medicine; Referring Provider Family Medicine; Visit Provider Family Medicine
DX: R09.89 Other specified symptoms and signs involving the circulatory and respiratory systems (principal); E11.3293 Type 2 diabetes mellitus with mild nonproliferative diabetic retinopathy without macular edema, bilateral; E21.3 Hyperparathyroidism, unspecified; E11.69 Type 2 diabetes mellitus with other specified complication; R80.9 Proteinuria, unspecified; E78.5 Hyperlipidemia, unspecified
CPT/HCPCS: 36415; 80053; 80061; 82306; 83036; 85027

== ENCOUNTER → 2024-12-21 12:52 | Outpatient (CLI) | payer OTHER, SELFPAY ==
[2024-12-21 14:14] LABS: Creatinine Urine Random 40.28 mg/dL
[2024-12-21 14:17] LABS: Microalbumin Urine Random < 0.6 mg/dL (0-1.6)
== END ==
PROVIDERS: PCP Family Medicine; Referring Provider Family Medicine; Visit Provider Family Medicine
DX: R09.89 Other specified symptoms and signs involving the circulatory and respiratory systems (principal); E11.3293 Type 2 diabetes mellitus with mild nonproliferative diabetic retinopathy without macular edema, bilateral; E11.69 Type 2 diabetes mellitus with other specified complication; E78.5 Hyperlipidemia, unspecified; E21.3 Hyperparathyroidism, unspecified; R80.9 Proteinuria, unspecified
CPT/HCPCS: 82043; 82570